=== PATIENT | female | born 1955 | race Caucasian/White ===

== ENCOUNTER 2021-10-27 16:00 | Outpatient (CLI) | payer OTHER, SELFPAY ==
--- NOTE | ~2021-10-27 | MM_ITS ---
EXAMINATION: MM screening genaro BI w semaj HISTORY: Screening mammogram TECHNIQUE: Craniocaudal and mediolateral oblique 3-D tomosynthesis images were obtained and synthetic 2-D images were generated. CAD analysis was submitted and interpreted. COMPARISON: No prior mammogram is available for comparison at this institution. BREAST PARENCHYMAL COMPOSITION: The breasts are heterogeneously dense, which may obscure small masses . FINDINGS: A suture is noted in the upper outer quadrant of the right breast. Status post right partial mastectomy and radiotherapy for history of breast cancer in 2007. This may account for architectural distortion and retraction noted on the right in the posterior inner aspect of the lower inner quadrant of the right breast. Comparison with prior mammograms is recommended. Otherwise there is no evidence of suspicious mass, calcification, or architectural distortion to sugg est malignancy in either breast. IMPRESSION: 1. Right breast architectural distortion and retraction 2. Comparison with prior mammogram examinations is recommended BI-RADS Category 0: Incomplete: Needs additional imaging evaluation (comparison with prior mammogram examinations). Reviewed, dictated and finalized at location A.
== END 2021-10-27 16:01 | disposition home or self-care (01) ==
PROVIDERS: PCP Family Medicine; Visit Provider Family Medicine
DX: Z12.31 Encounter for screening mammogram for malignant neoplasm of breast (principal)
CPT/HCPCS: 77063; 77067

== ENCOUNTER 2023-02-16 09:19 | Outpatient (CLI) | payer BC, SELFPAY ==
[2023-02-16 18:59] LABS: Free T4 Free Thyroxine 1.22 ng/mL (0.78-2.19)
[2023-02-16 19:10] LABS: Total Triiodothyronine (T3) 1.06 NG/ML (0.97-1.69)
== END 2023-02-16 09:20 | disposition home or self-care (01) ==
LOC: ANHGOSHLAB 09:21
PROVIDERS: PCP Emergency Medicine; Visit Provider Nurse Practitioner Family
DX: E03.9 Hypothyroidism, unspecified (principal)
CPT/HCPCS: 36415; 84439; 84443; 84480

== ENCOUNTER 2023-08-18 09:14 | Outpatient (CLI) | payer BC, SELFPAY ==
[2023-08-18 19:27] LABS: Alanine Aminotransferase 31 U/L (6-35); Albumin Level 4.1 g/dL (3.5-5.1); Alkaline Phosphatase 73 U/L (38-126); Anion Gap 4 mmol/L (8-16); Aspartate Amino Transferase 45 U/L (14-36); Bilirubin,Total 0.9 mg/dL (0.2-1.3); Blood Urea Nitrogen 17 mg/dL (7-17); Calcium 9.4 mg/dL (8.4-10.2); Carbon Dioxide 30 mmol/L (22-30); Chloride 105 mmol/L (98-107); Cholesterol 184 mg/dL (0-200); Estimated Glomerular Filt Rate > 60; Glucose 89 mg/dL (65-110); HDL Direct 56 mg/dL; Potassium 4.4 mmol/L (3.4-5.0); Sodium 139 mmol/L (137-145); Triglycerides 67 mg/dL (<150)
[2023-08-18 19:38] LABS: LDL Cholesterol Direct 103 mg/dL
[2023-08-18 19:47] LABS: Basophils Absolute Auto 0.1 K/mm3 (0.0-0.1); Eosinophils Absolute Auto 0.1 K/mm3 (0-0.3); Hematocrit 44.7 % (37.0-47.0); Hemoglobin 13.9 g/dL (12.0-15.0); Immature Granulocyte Absolute 0.01 K/mm3 (0.00-0.031); Immature Granulocyte Percent A 0.2 % (0-0.5); Lymphocytes Absolute Auto 1.85 K/mm3 (0.9-3.2); Lymphocytes Percent Auto 36.3 % (18.3-44.2); Mean Corpuscular HGB Conc 31.1 g/dl (32-36); Mean Corpuscular Hemoglobin 29.3 pg (26-34); Mean Corpuscular Volume 94.3 fl (80-100); Mean Platelet Volume 11.6 fl (7.4-10.4); Monocytes Absolute Auto 0.4 K/mm3 (0.1-0.6); Monocytes Percent Auto 7.8 % (2.6-8.5); Neutrophils Absolute Auto 2.7 K/mm3 (1.3-6.7); Neutrophils Percent Auto 52.7 % (45.5-73.1); Platelet Count Result 138 k/mm3 (150-375); Red Blood Count 4.74 M/mm3 (4.2-5.4); Red Cell Distribution Width 13.2 % (11.5-14.5); White Blood Count 5.1 K/mm3 (4.5-10.0)
[2023-08-18 20:05] LABS: Free T4 Free Thyroxine 1.54 ng/mL (0.78-2.19)
== END 2023-08-18 09:15 | disposition home or self-care (01) ==
LOC: ANHGOSHLAB 09:15
PROVIDERS: PCP Emergency Medicine; Visit Provider Emergency Medicine
DX: I10 Essential (primary) hypertension (principal); E03.9 Hypothyroidism, unspecified; Z79.899 Other long term (current) drug therapy
CPT/HCPCS: 36415; 80053; 80061; 84439; 84443; 85025

== ENCOUNTER → 2023-08-30 13:25 | Outpatient (CLI) | payer BC, SELFPAY ==
--- NOTE | ~2023-08-30 | XR_ITS ---
AP lateral views the left hip Clinical history: Pain Findings: No acute fracture or dislocation is seen. Osseous alignment is anatomic. There is mild left hip joint degenerative change. Soft tissues are unremarkable. Impression: Mild left hip joint degenerative change. Reviewed, dictated and finalized at location . 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
--- NOTE | ~2023-08-30 | XR_ITS ---
AP and lateral views of the right hip Clinical history: Pain Findings: No acute fracture or dislocation is seen. Osseous alignment is anatomic. There is moderate right hip joint degenerative change. Soft tissues are unremarkable. Impression: Moderate right hip joint degenerative change. Reviewed, dictated and finalized at location . 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
--- NOTE | ~2023-08-30 | XR_ITS ---
EXAMINATION: XR lumbar spine min 4V DATE: 08/30/2023 13:47 INDICATION: Dorsalgia, unspecified. TECHNIQUE: 5 views of the lumbar spine were obtained. COMPARISON: None. FINDINGS: There is 11 degrees dextroscoliosis of lumbar spine. Vertebral body heights are normal. The re is severely decreased disc height at L3-L4 and mildly decreased disc height at L5-S1. There are en dplate osteophytes at most levels. There is multilevel facet joint osteoarthritis, severe in lower [place] mbar spine. IMPRESSION: 1. Severe lumbar spondylosis. 2. Lumbar dextroscoliosis. Reviewed, dictated and finalized at location E. 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
== END ==
PROVIDERS: PCP Emergency Medicine; Visit Provider Emergency Medicine
DX: M16.0 Bilateral primary osteoarthritis of hip (principal); M43.06 Spondylolysis, lumbar region; M41.86 Other forms of scoliosis, lumbar region
CPT/HCPCS: 72110; 73502

== ENCOUNTER 2024-09-26 08:33 | Outpatient (CLI) | payer MEDICARE, SELFPAY ==
--- OUTSIDE RECORDS SUMMARY | 2024-09-26 08:59 | XMS_ITS | Encounter Summary ---
Author Organization [facility] Address [address] [place] [address] Care Team Providers Care Patient Support Tech Name Role Phone Michael Aguilar MD Primary Care Provider [phone] Encounter Details Date Type Department Care Team (Late st Contact Info) Description 10/19/2008 Outpatient Historical [facility] Radiation Oncology [place] [address] [place] [address] Marylin Pearl MD NO ADDRESS ON FILE Deshaun Hickman MD [address] [id number] Malignant Neoplasm of Central Portion of Female Breast (CMS/HCC) Social History Tobacco Use Types Packs/Day Years Used Date Smoking Tobacco: Never Assessed Comments Unknown Sex and Gender Information Value Date Recorded Sex Assigned at Not on file Legal Sex Female 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 [place] [id number] PCP - General Family Practice 08/31/23 documented as of this encounter
--- OUTSIDE RECORDS SUMMARY | 2024-09-26 08:59 | XMS_ITS | Clinical Summary ---
Author Organization [facility] Address [address] [place] [address] Care Team Providers Care Radioactivity Technician Name Role Phone Michael Aguilar MD Primary Care Provider [phone] Allergies Active Allergy Reactions Criticality Noted Date Comments Docetaxel Rash Medium 06/21/2013 Nitrofurantoin Palpitations,Cough Medium 06/21/2013 Medications CALCIUM CARBONATE/VITAM IN D3 (CALCIUM 600 + D PO) Take by mouth daily. Active ASCORBIC ACID (VITAMIN C ORAL)Indication s:Breast cancer (CMS/HCC),Throm bocytopenia, unspecified,Vag inal atrophy Take by mouth. Ac tive magnesium oxide 250 mg Tablet Take by mouth. A ctive levothyroxine 50 mcg tablet TAKE 1 TABLET EVERY DAY 3 6 Active estradioL (ESTRACE) 0.01% (0.1 mg/g) vaginal creamIndication s:Vaginal dryness INSERT VAGINALLY DAILY. 126 Gram 3 1 Active Active Problems Patient Care Coordination No te Formatting of this note migh t be different from the original. 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 282 after treatmetn for BOOP 87 in January Flow of peripheral blood was normal. Bone marrow bx Breast cancer 01/13/2009 Overview (05/08/2013): 04/22/08 Stage I ([id number]) IDC RIGHT breast ER50% PR70% HER2 - Ki67 35% S/p lumpectomy and SLNB S/p TC x 1 then AC x 3 (BOOP, pneumonitis); long prednisone taper S/p radiatoin 10/30/08 THrombocytopenia 01/08/09 TMX--01/13/10 ARIMIDEX -- FEMARA x 5 years Assessment & Plan (05/08/2013 3:32 PM CDT): ITP 4 years brca 5 years Off AI next January Plts 107 Crp up a bit - 1.9 Assessment & Plan (05/02/2012 3:13 PM CDT): ITP 3 years Breast cancer 4 years AI until January 2014 Plts ROV 1 year colonoscopy at 51y BMD uTD Assessment & Plan (11/01/2011 4:03 PM CDT): ITP 2 1/2 years Brast cancer 3 1/2 years Mammo Nov Plts 97 LFTs increased - on 1000IU vitamin E - told her to stop adn recheck in 4 weeks FEMARA ROV 1 yeaar Assessment & Plan (10/20/2010 4:36 PM CDT): ITP 1 1/2 yrs and breast cancer 2 1/2 yrs Bleeding early Aug - had endo bx which was negative; off AI until labs drawn Aug 27 , post andrea (barely) - still has d/c; atrophy Hot flashes - suggested MgO TSH was elevated in past; she's tired, cold Mammogram in Oct Plts 90 Check TSH today with labs FEMARA ROV 6 months Assessment & Plan (07/16/2010 3:01 PM ASSISTANT CONSTRUCTION SUPERINTENDENT): ITP and breast cancer Mammogram in Apr FEMARA Plts today 83 ROV 3 months Assessment & Plan (04/15/2010 3:46 PM CDT): ITP and breast cancer Mammogram today Arimidex for 3 months - a little sad plts 56 Spet 11th \still has intermittent LUIQ pain/pulling - Jaz Ducar referral UTI - picking up script today ROV 3 months Assessment & Plan (01/13/2010 3:07 PM CDT): ITP and breast cancer Mammogram Apr Plt 53 at last visit TMX causing leg cramps Discussed AIs Script for Arimidex Still having gastritis pains - on PPI ROV 3 months Monthly platelets Assessment & Plan (10/06/2009 2:20 PM CDT): Mammogram Oct 1 1/2 yrs out Still has LUQ pain in late afternoon when she's hungry - sounds like gastritis/ulcer. She is seeign her PCP for this soon Check labs, vit D, plt count ROV 6 months Assessment & Plan (06/27/2009 11:13 AM ASSISTANT CONSTRUCTION SUPERINTENDENT): Mammogram 05/05/09 negative 1 yr out from diagnosis Has pain LUQ; intermittent and usually when she's hungry. No bleeding or bruises out of range of normal Tired Check labs Check scans from [facility] to document normal spleen size Check U/S spleen ROV 3 months with labs Assessment & Plan (03/28/2009 3:50 PM CDT): 1 yr out next month On TMX 2 months doing well Low plts - reviewed BM biopsy in office -- worst case she has early myelodysplasia with hypolobulated plts PLAN: cont tmx Check CBC Discussed platelet issue in detail Mammogram in April ROV 3-6 months Encounters Date Type Department Care Team Description 09/11/2024 External Device Data [facility] ABSTRACTION Provider, Abstract 08/29/2024 External Device Data [facility] ABSTRACTION Provider, Abstract 08/28/2024 External Device Data [facility] ABSTRACTION Provider, Abstract 08/02/2024 External Device Data [facility] ABSTRACTION Provider, Abstract 07/31/2024 External Device Data [facility] ABSTRACTION Provider, Abstract 07/24/2024 External Device Data [facility] ABSTRACTION Provider, Abstract 07/17/2024 External Device Data [facility] ABSTRACTION Provider, Abstract from Last 3 Months Immunizations Immunization Administration Dates Next Due Influenza Seasonal Unspecified Formulation IM Family History Medical History Relation Name Comments Healthy Daughter 1 Healthy Daughter 2 Healthy Daughter 3 Heart Disease Father Stroke Father Breast Cancer Maternal Aunt age 50's Heart Disease Mother Stroke Mother Breast Cancer Paternal Aunt age 50's Cancer Paternal Uncle various Ovarian Cancer Neg Hx Uterine Cancer Neg Hx Relation Name Status Comments Daughter 1 Alive Daughter 2 Alive Daughter 3 Alive Father Maternal Aunt Mother Paternal Aunt Paternal Uncle Social History Tobacco Use Types Packs/Day Years Used Date Smoking Tobacco: Former Smokeless Tobacco: Never Tobacco Cessation:Counseling Given: No Alcohol Use Standard Drinks/Week Comments Yes 0 (1 standard drink = 0.6 oz pur e alcohol) rarely Comments No Sex and Gender Information Value Date Recorded Sex Assigned at Not on file Legal Sex Female 5:39 AM ASSISTANT CONSTRUCTION SUPERINTENDENT Gender Identity Not on file Sexual Orientation Not on file Occupation Industry Job Start Date Job End Date Not on file Not on file Not on file Not on file Last Filed Vital Signs Vital Sign Reading Time Taken Comments Blood Pressure 130/70 06/03/2020 12:21 PM ASSISTANT CONSTRUCTION SUPERINTENDENT Pulse 65 06/03/2020 12:21 PM ASSISTANT CONSTRUCTION SUPERINTENDENT Temperature 36.7 C (98.1 F) 06/03/2020 12:21 PM ASSISTANT CONSTRUCTION SUPERINTENDENT Respiratory Rate 18 06/03/2020 12:21 PM ASSISTANT CONSTRUCTION SUPERINTENDENT Oxygen Saturation 99% 06/03/2020 12:21 PM ASSISTANT CONSTRUCTION SUPERINTENDENT Inhaled Oxygen Concentration - - Weight 62.1 kg (137 lb) 06/03/2020 12:21 PM ASSISTANT CONSTRUCTION SUPERINTENDENT Height 168.9 cm (5' 6.5 ) 06/03/2020 12:21 PM CS T Body Mass Index 21.78 06/03/2020 12:21 PM ASSISTANT CONSTRUCTION SUPERINTENDENT Plan of Treatment Health Maintenance Due Date Last Done Comments DTAP/TDAP/TD VACCINES (1 - Tdap) 1975 FIT-DNA Q 3 years 2001 FIT/FOBT Q 1 year 2001 Flex Sig/CT Colonography Q 5 years 2001 PNEUMOCOCCAL VACCINE 50+ YEA RS (1 of 1 - PCV) 2006 ZOSTER VACCINE (1 of 2) 2006 COLORECTAL SCREENING 02/09/2020 02/08/2010 (Previously completed) Colorectal Cancer Screening 02/09/2020 INFLUENZA VACCINE (#1) 2024 03/27/2011 BREAST CANCER SCREENING 12/01/2024 12/02/19 24, 05/20/2023, 11/15/2022, Additional history exists OSTEOPOROSIS SCREENING 10/11/2025 , 06/14/2019, 07/10/2014, Additional history exists RSV VACCINE (60+ or ) (1 - 1-dose 75+ series) 2031 Procedures Procedure Name Priority Date/Time Associated Diagnosis Comments MAMMO 3D HANH DIAGNOSTIC BILAT W OR WO CAD Routine 12/02/2023 11:39 AM CDT Breast asymmetry Breast cancer screening by mammogram XR DEXA BONE DENSITY AXIAL 1 OR MORE SITES Routine 10/12/2023 10:38 AM CDT Other specified disorders of bone density and structure, unspecified site from Last 3 Months or Most Recently Relevant to Health Maintenance Results * MAMMO 3D HANH DIAGNOSTIC BILAT W OR WO CAD (12/02/2023 11:39 AM CDT) Anatomical Region Laterality Modality Breast Bilateral Mammography 12/02/2023 11:3 9 AM CDT Impressions 12/02/2023 11:59 AM CDT IMPRESSION: 1. No evidence of malignancy in either breast. 2. Focal asymmetry in the upper-inner left breast is stable since 2011 consistent with benign finding. OVERALL FINAL ASSESSMENT: BI-RADS Category 2: Benign finding(s). RECOMMENDATION: Bilateral screening mammogram in one year. Findings discussed with the patient. DICTATION LOCATION: [facility] 12/02/2023 11:59 AM CDT BILATERAL DIGITAL DIAGNOSTIC MAMMOGRAM WITH TOMOSYNTHESIS AND CAD TECHNIQUE: Images were performed using 2D full field digital mammography with 3D tomosynthesis images. CAD analysis was performed. DATE: 12/02/2023 11:39 AM HISTORY: Right breast cancer status post breast conservation therapy in 2011. History of benign right breast biopsy. Probably benign asymmetry in the upper-inner left breast. COMPARISON: Prior mammograms, dating back to 05/07/2009 and most recently 05/20/2023. BREAST COMPOSITION: The breasts are heterogeneously dense, which may obscure small masses. FINDINGS: Additional spot compression tomosynthesis images of the left breast were obtained. A focal asymmetry in the upper-inner left breast posterior depth is stable since 2011 consistent with benign finding. Posttreatment changes are seen in the right breast. Marker from prior benign biopsy is seen in the right breast. There is no suspicious mass, clustered microcalcification, or architectural distortion in either breast on 2D or tomosynthesis images. There has been no change in the mammographic appearance compared with the prior study. Procedure Note Omar Jang MD - 12/02/2023 BILATERAL DIGITAL DIAGNOSTIC MAMMOGRAM WITH TOMOSYNTHESIS AND CAD TECHNIQUE: Images were performed using 2D full field digital mammography with 3D tomosynthesis images. CAD analysis was performed. DATE: 12/02/2023 11:39 AM HISTORY: Right breast cancer status post breast conservation therapy in 2012. History of benign right breast biopsy. Probably benign asymmetry in the upper-inner left breast. COMPARISON: Prior mammograms, dating back to 05/07/2009 and most recently 05/20/2023. BREAST COMPOSITION: The breasts are heterogeneously dense, which may obscure small masses. FINDINGS: Additional spot compression tomosynthesis images of the left breast were obtained. A focal asymmetry in the upper-inner left breast posterior depth is stable since 2011 consistent with benign finding. Posttreatment changes are seen in the right breast. Marker from prior benign biopsy is seen in the right breast. There is no suspicious mass, clustered microcalcification, or architectural distortion in either breast on 2D or tomosynthesis images. There has been no change in the mammographic appearance compared with the prior study. IMPRESSION: 1. No evidence of malignancy in either breast. 2. Focal asymmetry in the upper-inner left breast is stable since 2011 consistent with benign finding. OVERALL FINAL ASSESSMENT: BI-RADS Category 2: Benign finding(s). RECOMMENDATION: Bilateral screening mammogram in one year. Findings discussed with the patient. DICTATION LOCATION: [facility] Ila Schwab MD MAMMO ORDERABLES Final Result * XR DEXA BONE DENSITY AXIAL 1 OR MORE SITES (10/12/2023 10:38 AM CDT) Anatomical Region Laterality Modality Computed Radiogr aphy 10/12/2023 10:3 8 AM CDT Impressions 10/12/2023 4:24 PM CDT IMPRESSION: This is a summary page. Please refer to the complete detailed report found in the Imaging Section of the [facility] EMR, including absolute bone mineral density values. Decreased (osteopenic) BMD. Comments: Bone mineral density measured in the spine may be unreliable due to the impact of sclerotic degenerative changes. Statistical change: There is a statistically significant decrease in bone mineral density at the L1-L2 measurement site(s), 2.6% lower than in 2019. A statistically significant change is defined as a change of greater than 2.5 standard deviations in the least significant difference (LSD) from the prior study. Least significant differences and statistically significant changes are defined as follows: Lumbar spine: +/- 0.010 g/cm2 LSD (+/- 0.025 g/cm2 statistically significant change) Femoral neck: +/- 0.014 g/cm2 (+/- 0.035 g/cm2) Forearm radius 33%: +/- 0.020 g/cm2 (+/- 0.050 g/cm2) FRAX FRACTURE RISK ASSESSMENT: Risk factors: Secondary osteoporosis. 10 Year Probability Of Fracture Major Osteoporotic: 8.4 % Hip: 1.0 % Comparison population: [place], Race: A major osteoporotic fracture is defined as a fracture of the spine, forearm, hip or shoulder. Definitions: Normal: T-score >= -1.0 Osteopenia T-score less than -1.0 and above -2.5 Osteoporosis: T-score <= -2.5 Follow-up Recommendations: Patients without high risk factors for osteoporosis T-score -1.0 to -1.5 - Consider repeat BMD in 5-10 years T-score -1.5 to - 2.0 - Consider repeat BMD in 3-5 years T-score -2.0 to - 2.5 - Consider repeat BMD every 2 years Patients on treatment for osteoporosis 1-2 years after initiation of treatment and every 2 years thereafter DICTATION LOCATION: Location 1 - [facility] Narrative 10/12/2023 4:24 PM CDT EXAMINATION: BONE DENSITY STUDY (DXA) DATE: 10/12/2023 10:38 AM HISTORY: See Diagnosis Other specified disorders of bone density and structure, unspecified site PROCEDURE: Planar images of the lumbar spine and/or hip(s) using a LUNAR DEXA scanner for bone mineral density determination (BMD). Prior bone density: 06/14/2019 FINDINGS: Lumbar Spine (L1-L2): T-Score: -1.3 Left Femoral Neck: T-Score: -1.1 Right Femoral Neck: T-Score: -1.6 Procedure Note Petros Arguelles MD - 10/12/2023 EXAMINATION: BONE DENSITY STUDY (DXA) DATE: 10/12/2023 10:38 AM HISTORY: See Diagnosis Other specified disorders of bone density and structure, unspecified site PROCEDURE: Planar images of the lumbar spine and/or hip(s) using a LUNAR DEXA scanner for bone mineral density determination (BMD). Prior bone density: 06/14/2019 FINDINGS: Lumbar Spine (L1-L2): T-Score: -1.3 Left Femoral Neck: T-Score: -1.1 Right Femoral Neck: T-Score: -1.6 IMPRESSION: This is a summary page. Please refer to the complete detailed report found in the Imaging Section of the [facility] EMR, including absolute bone mineral density values. Decreased (osteopenic) BMD. Comments: Bone mineral density measured in the spine may be unreliable due to the impact of sclerotic degenerative changes. Statistical change: There is a statistically significant decrease in bone mineral density at the L1-L2 measurement site(s), 2.6% lower than in 2019. A statistically significant change is defined as a change of greater than 2.5 standard deviations in the least significant difference (LSD) from the prior study. Least significant differences and statistically significant changes are defined as follows: Lumbar spine: +/- 0.010 g/cm2 LSD (+/- 0.025 g/cm2 statistically significant change) Femoral neck: +/- 0.014 g/cm2 (+/- 0.035 g/cm2) Forearm radius 33%: +/- 0.020 g/cm2 (+/- 0.050 g/cm2) FRAX FRACTURE RISK ASSESSMENT: Risk factors: Secondary osteoporosis. 10 Year Probability Of Fracture Major Osteoporotic: 8.4 % Hip: 1.0 % Comparison population: [place], Race: A major osteoporotic fracture is defined as a fracture of the spine, forearm, hip or shoulder. Definitions: Normal: T-score >= -1.0 Osteopenia T-score less than -1.0 and above -2.5 Osteoporosis: T-score <= -2.5 Follow-up Recommendations: Patients without high risk factors for osteoporosis T-score -1.0 to -1.5 - Consider repeat BMD in 5-10 years T-score -1.5 to - 2.0 - Consider repeat BMD in 3-5 years T-score -2.0 to - 2.5 - Consider repeat BMD every 2 years Patients on treatment for osteoporosis 1-2 years after initiation of treatment and every 2 years thereafter DICTATION LOCATION: Location 1 - [facility] Michael Aguilar MD DIAGNOSTIC IMAGING ORDERABLES Fi nal Result from Last 3 Months or Most Recently Relevant to Health Maintenance Insurance RX [facility] [employer] [facility] BLUE ACCESS/TRUE BLUE PPO Care Teams Radioactivity Technician Relationship Specialty Start Date End Date Michael Aguilar MD [address] [place] [address] PCP - General Family Practice 08/31/23
--- OUTSIDE RECORDS SUMMARY | 2024-09-26 08:59 | XMS_ITS | Encounter Summary ---
Author Organization [facility] Address [address] [place] [address] Care Team Providers Care Lining Sewer Name Role Phone Michael Aguilar MD Primary Care Provider [phone] Encounter Details Date Type Department Care Team (Late st Contact Info) Description 05/30/2008 Outpatient [facility] Radiation Oncology [place] [address] [place] [id number] Marylin Pearl MD NO ADDRESS ON FILE Deshaun Hickman MD [address] [place] [id number] Malignant Neoplasm of Central Portion of Female Breast (CMS/HCC) Social History Tobacco Use Types Packs/Day Years Used Date Smoking Tobacco: Never Assessed Comments Unknown Sex and Gender Information Value Date Recorded Sex Assigned at Not on file Legal Sex Female 5:39 AM 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
--- OUTSIDE RECORDS SUMMARY | 2024-09-26 08:59 | XMS_ITS | Continuity of Care Document ---
Author Organization [facility] Address [address] [place] [address] Phone Care Team Providers Care Glass Mechanic Name Role Phone Ozzie Hernandez MD Unavailable Unavailable Allergies, Adverse Reactions, Alerts Substance Reaction Status Criticality docetaxel Rash Active No Information Sulfa (Sulfonamide Antibiotics) Active No Information nitrofurantoin PalpitationsDyspnea Active Unable to Assess erythromycin base Active No Informa tion Medications Medication Instructions Dosage Effective Dates (start - stop) Status Comments lorazepam 0.5 mg tablet - Ac tive levothyroxine 75 mcg capsule take 1 capsule by oral route every day 75 MCG - Active Procedures Procedure Date New (Level 4) OFFICE/OUTPATIENT VISIT Fl DIRECTOR OF EDUCATION Registration Fee Advance Directives Directive Yes / [...] [facility], [address], [place], [place], [id number], tel:[phone] [facility] reaction, food (chief complaint) Other adverse food reaction, initial encounterAbnorm al results of function studies of other systemsLactose intolerance, unspecified [address]. [address], [place], [address], [place]. tel:[phone] Referring Provider: Micheal Leon, [address] [place] [address] [address], [place], [address]. tel:[phone] [facility], [address] [place] [address], [id number], [place] tel:[phone] [facility] No Information 4 [facility] Prov. . Referring Provider: Ozzie Hernandez, [address], [place], [address]. tel:[phone] Family History Family Member Type Diagnosis Age At Onset Mother Problem Rhinitis Problem No family history of Asthma Father Problem Rhinitis Problem Family history of Rhinitis Payers Payer name Insurance type Covered democrat ID Matilde peña(s) [facility] [id number] Social History Type Description Quantity Date Captured [...] was treatedFHAsthma - noneRhinitis - mom, dad, childrenLankenau Medical Centero: Former smoker (2 ppd x 5 years; [...] Prese nt Illness reaction, food Adverse Food Hansa ctionMilk - She reports diarrhea with milk [...]
--- OUTSIDE RECORDS SUMMARY | 2024-09-26 08:59 | XMS_ITS | Encounter Summary ---
Author Organization [facility] Address [address] [place] [address] Care Team Providers Care Rn Med Surg Name Role Phone Michael Aguilar MD Primary Care Provider [phone] Encounter Details Date Type Department Care Team (Late st Contact Info) Description 09/17/[address] [facility] Radiation Oncology [place] [address] [place] [address] Marylin Pearl MD NO ADDRESS ON FILE Deshaun Hickman MD [address] [place] [id number] Malignant Neoplasm of Central Portion of Female Breast (CMS/HCC) Social History Tobacco Use Types Packs/Day Years Used Date Smoking Tobacco: Never Assessed Comments Unknown Sex and Gender Information Value Date Recorded Sex Assigned at Not on file Legal Sex Female 5:39 AM COMMERCIAL LOAN COORDINATOR Gender Identity Not on file Sexual Orientation Not on file documented as of this encounter Plan of Treatment Not on file documented as of this encounter Visit Diagnoses Diagnosis Malignant neoplasm of central portion of female breast (CMS/HCC) Malignant neoplasm of central portion of female breast documented in this encounter Care Teams Rn Med Surg Relationship Specialty Start Date End Date Michael Aguilar MD [facility] [facility] [address] [address] [facility] [place] [phone] PCP - General Family Practice 08/31/23 documented as of this encounter
--- OUTSIDE RECORDS SUMMARY | 2024-09-26 08:59 | XMS_ITS | Encounter Summary ---
Author Organization [facility] Address [address] [place] [address] Care Team Providers Care Town Manager Name Role Phone Michael Aguilar MD Primary Care Provider [phone] Encounter Details Date Type Department Care Team (Late st Contact Info) Description 11/20/2008 Outpatient Historical [facility] Radiation Oncology [place] [address] [place] [address] Marylin Pearl MD NO ADDRESS ON FILE Deshaun Hickman MD [address] [place] [phone] Malignant Neoplasm of Central Portion of Female Breast (CMS/HCC) Social History Tobacco Use Types Packs/Day Years Used Date Smoking Tobacco: Never Assessed Comments Unknown Sex and Gender Information Value Date Recorded Sex Assigned at Not on file Legal Sex Female 5:39 AM 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
--- OUTSIDE RECORDS SUMMARY | 2024-09-26 08:59 | XMS_ITS | Encounter Summary ---
Author Organization [facility] Address [address] [place] [address] Care Team Providers Care Rural Mail Carrier Name Role Phone Michael Aguilar MD Primary Care Provider [phone] Encounter Details Date Type Department Care Team (Late st Contact Info) Description 08/09/2008 Outpatient Historical [facility] Radiation Oncology [place] [address] [place] [address] Marylin Pearl MD NO ADDRESS ON FILE Deshaun Hickman MD [address] [place] [id number] Malignant Neoplasm of Central Portion of Female Breast (CMS/HCC) Social History Tobacco Use Types Packs/Day Years Used Date Smoking Tobacco: Never Assessed Comments Unknown Sex and Gender Information Value Date Recorded Sex Assigned at Not on file Legal Sex Female 5:39 AM PRICER BAGGER Gender Identity Not on file Sexual Orientation Not on file documented as of this encounter Plan of Treatment Not on file documented as of this encounter Visit Diagnoses Diagnosis Malignant neoplasm of central portion of female breast (CMS/HCC) Malignant neoplasm of central portion of female breast documented in this encounter Care Teams Rural Mail Carrier Relationship Specialty Start Date End Date Michael Aguilar MD [facility] [facility] [place] [address] PCP - General Family Practice 08/31/23 documented as of this encounter
--- OUTSIDE RECORDS SUMMARY | 2024-09-26 08:59 | XMS_ITS | Encounter Summary ---
Author Organization [employer] Address [address] [place] [address] Care Team Providers Care Sheet Metal Production Worker Name Role Phone Michael Aguilar MD Primary Care Provider [phone] Encounter Details Date Type Department Care Team (Latest Contact Info) Description 01/08/2009 Outpatient Historical [facility] Dflt Department Joy Olmedo MD [address] [place] [address] [place] [address] Encounter for Antineoplastic Chemotherapy Social History Tobacco Use Types Packs/Day Years Used Date Smoking Tobacco: Never Assessed Comments Unknown Sex and Gender Information Value Date Recorded Sex Assigned at Not on file 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
--- OUTSIDE RECORDS SUMMARY | 2024-09-26 08:59 | XMS_ITS | Encounter Summary ---
Author Organization [facility] Address [address] [place] [address] Care Team Providers Care Protection Manager Name Role Phone Michael Aguilar MD Primary Care Provider [phone] Encounter Details Date Type Department Care Team (Latest Contact Info) Description 06/12/2008 Outpatient Historical [facility] Radiation Oncology [place] [address] [place] [address] [place] [address] Marylin Pearl MD NO ADDRESS ON FILE Malignant Neoplasm of Central Portion of Female Breast (CMS/HCC) Social History Tobacco Use Types Packs/Day Years Used Date Smoking Tobacco: Never Assessed Comments Unknown Sex and Gender Information Value Date Recorded Sex Assigned at Not on file 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 [place] [address] PCP - General Family Practice 08/31/23 documented as of this encounter
[2024-09-26 13:20] LABS: Hematocrit 41.1 % (37.0-47.0); Hemoglobin 13.3 g/dL (12.0-15.0); Mean Corpuscular HGB Conc 32.4 g/dl (32-36); Mean Corpuscular Hemoglobin 30.3 pg (26-34); Mean Corpuscular Volume 93.6 fl (80-100); Mean Platelet Volume 10.2 fl (7.4-10.4); Platelet Count Result 126 k/mm3 (150-375); Red Blood Count 4.39 M/mm3 (4.2-5.4); Red Cell Distribution Width 13.2 % (11.5-14.5); White Blood Count 4.5 K/mm3 (4.5-10.0)
[2024-09-26 13:41] LABS: Alanine Aminotransferase 42 U/L (6-35); Albumin Level 4.5 g/dL (3.5-5.1); Alkaline Phosphatase 66 U/L (38-126); Anion Gap 10 mmol/L (4-12); Aspartate Amino Transferase 47 U/L (14-36); Bilirubin,Total 0.7 mg/dL (0.2-1.3); Blood Urea Nitrogen 18 mg/dL (7-17); Calcium 9.4 mg/dL (8.4-10.2); Carbon Dioxide 28 mmol/L (22-30); Chloride 103 mmol/L (98-107); Cholesterol 203 mg/dL (0-200); Estimated Glomerular Filt Rate > 60; Glucose 81 mg/dL (65-110); HDL Direct 62 mg/dL; Potassium 3.8 mmol/L (3.4-5.0); Sodium 141 mmol/L (137-145); Triglycerides 75 mg/dL (<150)
[2024-09-26 13:52] LABS: LDL Cholesterol Direct 98 mg/dL
[2024-09-26 14:36] LABS: Free T4 Free Thyroxine 1.18 ng/dL (0.78-2.19)
== END 2024-09-26 08:34 | disposition home or self-care (01) ==
LOC: ANHGOSHLAB 08:34
PROVIDERS: PCP Family Medicine; Visit Provider Family Medicine
DX: E03.9 Hypothyroidism, unspecified (principal); I10 Essential (primary) hypertension; R74.8 Abnormal levels of other serum enzymes; Z79.899 Other long term (current) drug therapy
CPT/HCPCS: 36415; 80053; 80061; 84439; 84443; 85027

== ENCOUNTER 2024-11-20 09:21 | Outpatient (CLI) | payer MEDICARE, SELFPAY ==
--- NOTE | ~2024-11-20 | XR_ITS ---
Right Knee Technique: AP, lateral, and oblique views were obtained. Clinical History: Pain Findings: No fracture or dislocation is seen. Osseous alignment is anatomic. Joint spaces are preserv ed without degenerative or erosive change. Soft tissues are unremarkable. No joint effusion is seen. Impression: Unremarkable right knee radiographs. Reviewed, dictated and finalized at location . Impression: Unremarkable right knee radiographs.
--- NOTE | ~2024-11-20 | XR_ITS ---
Lumbosacral Spine: AP, oblique, and lateral views Clinical History: Pain Findings: There is mild dextroscoliosis. Extensive facet arthropathy is present throughout the lumbar spine. There moderate degenerative changes at L3-L4, mild degenerative disc change at the remainder of the lumbar spine. Sacroiliac joints are normally outlined. Impression: Degenerative spondylosis, as above, with extensive facet arthropathy. Reviewed, dictated and finalized at location M. Impression: Degenerative spondylosis, as above, with extensive facet arthropathy.
--- NOTE | ~2024-11-20 | XR_ITS ---
AP and lateral views of the right hip Clinical history: Pain Findings: No acute fracture or dislocation is seen. There is severe right hip joint degenerative patel ge. There is joint space narrowing and osteophyte formation. There is a chondral cystic change in the superior right acetabulum.. Soft tissues are unremarkable. Impression: Severe right hip joint osteoarthritis. Reviewed, dictated and finalized at location . Impression: Severe right hip joint osteoarthritis.
== END 2024-11-20 09:22 | disposition home or self-care (01) ==
PROVIDERS: Visit Provider Family Medicine
DX: M47.896 Other spondylosis, lumbar region (principal); M16.11 Unilateral primary osteoarthritis, right hip; M25.561 Pain in right knee
CPT/HCPCS: 72110; 73502; 73564

== ENCOUNTER 2024-12-21 11:52 | Outpatient (CLI) | payer MEDICARE, SELFPAY ==
--- OUTSIDE RECORDS SUMMARY | 2024-12-21 11:55 | XMS_ITS | Clinical Summary ---
Author Organization [facility] Address [address] [place] [address] Care Team Providers Care Qlikview Developer Name Role Phone Michael Aguilar MD Primary Care Provider [phone] Allergies Active Allergy Reactions Criticality Noted Date [...] Hickman MD [address] [place] [address] Other: Dr Anneliese Phillips Problem Noted Date Diagnosed Date Asymptomatic postmenopausal status 07/01/2014 Thrombocytopenia - ITP 01/15/2009 Overview (01/15/2009): 153 prior to chemo. 282 after treatmetn for BOOP 87 in January Flow of peripheral blood was normal. Bone marrow bx Breast cancer 01/13/2009 Overview (05/08/2013): 04/22/08 Stage I ([id number]) IDC RIGHT breast ER50% PR70% HER2 - [...] months Assessment & Plan (07/16/2010 3:01 PM ENERGY CONSULTANT): ITP and breast cancer Mammogram in Apr [...] months Assessment & Plan (06/27/2009 11:13 AM ENERGY CONSULTANT): Mammogram 05/05/09 negative 1 yr out from [...] Encounters Date Type Department Care Team Description 12/04/2024 11:03 AM CDT - 12/04/2024 11:59 PM CDT Hospital Encounter [facility] [address] [place] [address] Bella Nolasco, Discharge Disposition: Home or Self Care 11/27/2024 External Device Data STL ABSTRACTION Provider, Abstract 10/23/2024 External Device Data STL ABSTRACTION Provider, Abstract 10/03/2024 Transcribe Orders Central Test Scheduling [address] [place] [address] Bella Nolasco DO Visit for screening mammogram (Primary Dx) from Last 3 Months Immunizations Immunization Administration [...] on file Legal Sex Female 5:39 AM ENERGY CONSULTANT Gender Identity Not on file Sexual Orientation Not on file Occupation Industry Job Start Date Job End Date Not on file Not on file Not on file Not on file Last Filed Vital Signs Vital Sign Reading Time Taken Comments Blood Pressure 130/70 06/03/2020 12:21 PM ENERGY CONSULTANT Pulse 65 06/03/2020 12:21 PM ENERGY CONSULTANT Temperature 36.7 C (98.1 F) 06/03/2020 12:21 PM ENERGY CONSULTANT Respiratory Rate 18 06/03/2020 12:21 PM ENERGY CONSULTANT Oxygen Saturation 99% 06/03/2020 12:21 PM ENERGY CONSULTANT Inhaled Oxygen Concentration - - Weight 62.1 kg (137 lb) 06/03/2020 12:21 PM ENERGY CONSULTANT Height 168.9 cm (5' 6.5) 06/03/2020 12:21 PM CS T Body Mass Index 21.78 06/03/2020 12:21 PM ENERGY CONSULTANT Plan of Treatment Health Maintenance Due Date [...] Screening 02/09/2020 INFLUENZA VACCINE (#1) 2024 03/27/2011 OSTEOPOROSIS SCREENING 10/11/2025 4, 06/14/2019, 07/10/2014, Additional history exists BREAST CANCER SCREENING 12/04/2025 12/05/19 25, 12/02/2023, 05/20/2023, Additional history exists RSV VACCINE (60+ or ) (1 - 1-dose 75+ series) 2031 Procedures Procedure Name Priority Date/Time Associated Diagnosis Comments MAMMO 3D HANH SCREEN BILAT W OR WO CAD Routine 12/04/2024 11:19 AM CDT Visit for screening mammogram XR DEXA BONE DENSITY AXIAL 1 OR MORE SITES Routine 10/12/2023 10:38 AM CDT Other specified disorders of bone density and structure, unspecified site from Last 3 Months or Most Recently Relevant to Health Maintenance Results * MAMMO 3D HANH SCREEN BILAT W OR WO CAD (12/04/2024 11:19 AM CDT) Anatomical Region Laterality Modality Breast Bilateral Mammography 12/04/2024 11:1 9 AM CDT Impressions 12/04/2024 11:41 AM CDT IMPRESSION: Negative. RECOMMENDATIONS: Bilateral annual screening mammogram RIGHT BREAST FINAL ASSESSMENT: BI-RADS CATEGORY 1 - Negative LEFT BREAST FINAL ASSESSMENT: BI-RADS CATEGORY 1 - Negative DICTATION LOCATION: [facility] 12/04/2024 11:41 AM CDT BILATERAL SCREENING DIGITAL MAMMOGRAMS WITH COMPUTER ASSISTED DIAGNOSIS WITH TOMOGRAPHY DATE: 12/04/2024 11:19 AM HISTORY: Routine screening mammogram. . COMPARISON: 12/02/2023, 05/20/2023 and 10/28/2022. TECHNIQUE: A bilateral screening mammogram was performed. Low-dose full-field digital breast tomosynthesis examination was performed with 2D and 3D acquisitions. Examination is read in conjunction with computer aided detection. BREAST COMPOSITION: Heterogeneously dense, which limits the sensitivity of mammography. FINDINGS: No new masses, suspicious calcifications or areas of asymmetry or distortion are identified. The images were reviewed using the CAD system. us Bella Northchrissydalton DO MAMMO ORDERABLES Final Res ult * XR DEXA BONE DENSITY AXIAL 1 OR MORE SITES (10/12/2023 10:38 AM CDT) Anatomical Region Laterality Modality Computed Radiogr aphy 10/12/2023 10:3 8 AM CDT Impressions 10/12/2023 4:24 PM CDT IMPRESSION: This is a summary page. Please refer to the complete detailed report found in the Imaging Section of the [facility] [employer] EMR, including absolute bone mineral density values. [...] years thereafter [facility] 10/12/2023 4:24 PM CDT EXAMINATION: BONE DENSITY [...] found in the Imaging Section of the [facility] EMR, including absolute bone mineral density [...] and every 2 years thereafter DICTATION LOCATION: [address] Michael Aguilar MD DIAGNOSTIC IMAGING ORDERABLES Fi nal Result from Last 3 Months or Most Recently Relevant to Health Maintenance Insurance RX [facility] Care Teams Qlikview Developer Relationship Specialty Start Date End Date Michael Aguilar MD [address] [facility] [place] [address] PCP - General Family Practice 08/31/23
--- OUTSIDE RECORDS SUMMARY | 2024-12-21 11:55 | XMS_ITS | Encounter Summary ---
Author Organization [facility] Address 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 Breast (CMS/HCC) Social History Tobacco Use Types Packs/Day Years Used Date Smoking Tobacco: Never Assessed Comments Unknown Sex and Gender Information Value Date Recorded Sex Assigned at Not on file 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
--- OUTSIDE RECORDS SUMMARY | 2024-12-21 11:55 | XMS_ITS | Encounter Summary ---
Author Organization [facility] Address [address] [place] [address] Care Team Providers Care Architectural Model Maker Name Role Phone Michael Aguilar MD Primary Care Provider [phone] Encounter Details Date Type Department Care Team (Late st Contact Info) Description 09/17/2008 Outpatient Historical [facility] Radiation Oncology [place] [address] [place] [address] Marylin Pearl MD NO ADDRESS ON FILE Deshaun Hickman MD [address] [place] [phone] Malignant Neoplasm of Central Portion of Female Breast (CMS/HCC) Social History Tobacco Use Types Packs/Day Years Used Date Smoking Tobacco: Never Assessed Comments Unknown Sex and Gender Information Value Date Recorded Sex Assigned at Not on file 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 Gender Identity Not on file Sexual Orientation Not on file documented as of this encounter Plan of Treatment Not on file documented as of this encounter Visit Diagnoses Diagnosis Malignant neoplasm of central portion of female breast (CMS/HCC) Malignant neoplasm of central portion of female breast documented in this encounter Care Teams Architectural Model Maker Relationship Specialty Start Date End Date Michael Aguilar MD [facility] [facility] [place] [address] PCP - General Family Practice 08/31/23 documented as of this encounter
--- OUTSIDE RECORDS SUMMARY | 2024-12-21 11:55 | XMS_ITS | Encounter Summary ---
Author Organization [employer] Address [address] [place] [address] Care Team Providers Care Web Analytics Developer Name Role Phone Michael Aguilar MD Primary Care Provider Encounter Details Date Type Department Care Team (Latest Contact Info) Description 01/08/2009 Outpatient Historical [facility] Dflt Department Joy Olmedo MD [address] [place] [address] [place] [address] Encounter for Antineoplastic Chemotherapy Social History Tobacco Use Types Packs/Day Years Used Date Smoking Tobacco: Never Assessed Comments Unknown Sex and Gender Information Value Date Recorded Sex Assigned at Not on file 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
--- OUTSIDE RECORDS SUMMARY | 2024-12-21 11:55 | XMS_ITS | Continuity of Care Document ---
Author Organization [facility] Address [address] [facility] [address] [place] [address] Phone Care Team Providers Care Lead Retail Sales Associate Name Role Phone Ozzie eHrnandez MD Unavailable Unavailable Allergies, Adverse Reactions, Alerts [...] Procedure Date New (Level 4) OFFICE/OUTPATIENT VISIT Ct NURSING PROGRAM MANAGER Registration Fee Advance Directives Directive Yes / [...] [facility], [address] [facility] [address], [place], [place], [id number], tel:[phone] [facility] reaction, food (chief complaint) Other adverse food reaction, initial encounterAbnorm al results of function studies of other systemsLactose intolerance, unspecified [address] David Horne. [address], [place], [address], [place]. tel:[phone] Referring Provider: Michael Leon, [address] [place] [address] [address], [place], [address]. tel:[phone] [facility], [address] [place] [address], [id number], [place] tel:[phone] [facility] No Information 4 [facility] Prov. . Referring Provider: Ozzie Hernandez, [address], [place], [address]. tel:[phone] Family History Family Member Type Diagnosis Age At Onset Mother Problem Rhinitis Problem No family history of Asthma Father Problem Rhinitis Problem Family history of Rhinitis Payers Payer name Insurance type Covered democrat ID Matilde peña(s) [facility] [id number] Social History Type Description Quantity Date Captured [...] was treatedFHAsthma - noneRhinitis - mom, dad, [facility]: Former smoker (2 ppd x 5 years; [...] Prese nt Illness reaction, food Adverse Food Brokaw ctionMilk - She reports diarrhea with milk [...]
--- OUTSIDE RECORDS SUMMARY | 2024-12-21 11:55 | XMS_ITS | Encounter Summary ---
Author Organization [facility] Address [address] [place] [address] Care Team Providers Care Heating Equipment Repairer Name Role Phone Michael Aguilar MD Primary Care Provider [phone] Encounter Details Date Type Department Care Team (Late st Contact Info) Description 05/30/2008 Outpatient [facility] Radiation Oncology [place] [address] [place] [address] [place] [address] Marylin Pearl MD NO ADDRESS ON FILE Deshaun Hickman MD [address] [place] [phone] Malignant Neoplasm of Central Portion of Female Breast (CMS/HCC) Social History Tobacco Use Types Packs/Day Years Used Date Smoking Tobacco: Never Assessed Comments Unknown Sex and Gender Information Value Date Recorded Sex Assigned at Not on file 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 [place] [address] PCP - General Family Practice 08/31/23 documented as of this encounter
--- OUTSIDE RECORDS SUMMARY | 2024-12-21 11:55 | XMS_ITS | Encounter Summary ---
Author Organization [facility] Address [address] [place] [address] Care Team Providers Care Gem Expert Name Role Phone Michael Aguilar MD Primary Care Provider [phone] Encounter Details Date Type Department Care Team (Late st Contact Info) Description 08/09/2008 Outpatient Historical [facility] Radiation Oncology [place] [address] [place] [address] Marylin Pearl MD NO ADDRESS ON FILE Deshaun Hickman MD [address] [place] [phone] Malignant Neoplasm of Central Portion of Female Breast (CMS/HCC) Social History Tobacco Use Types Packs/Day Years Used Date Smoking Tobacco: Never Assessed Comments Unknown Sex and Gender Information Value Date Recorded Sex Assigned at Not on file 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 Sex Female 5:39 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
--- OUTSIDE RECORDS SUMMARY | 2024-12-21 11:56 | XMS_ITS | Encounter Summary ---
Author Organization [facility] Address [address] [place] [address] Care Team Providers Care Enlisted Advisor Name Role Phone Michael Aguilar MD Primary Care Provider [phone] Encounter Details Date Type Department Care Team (Late st Contact Info) Description 10/19/2008 Outpatient Historical [facility] Radiation Oncology [place] [address] [place] [address] Marylin Pearl MD NO ADDRESS ON FILE Deshaun Hickman MD [address] [place] [phone] Malignant Neoplasm of Central Portion of Female Breast (CMS/HCC) Social History Tobacco Use Types Packs/Day Years Used Date Smoking Tobacco: Never Assessed Comments Unknown Sex and Gender Information Value Date Recorded Sex Assigned at Not on file Legal Sex Female 5:39 AM SPINNER FRAME Gender Identity Not on file Sexual Orientation Not on file documented as of this encounter Plan of Treatment Not on file documented as of this encounter Visit Diagnoses Diagnosis Malignant neoplasm of central portion of female breast (CMS/HCC) Malignant neoplasm of central portion of female breast documented in this encounter Care Teams Enlisted Advisor Relationship Specialty Start Date End Date Michael Aguilar MD [facility] [facility] [place] [address] PCP - General Family Practice 08/31/23 documented as of this encounter
--- OUTSIDE RECORDS SUMMARY | 2024-12-21 11:56 | XMS_ITS | Encounter Summary ---
Author Organization [facility] Address [address] [place] [address] Care Team Providers Care Telegraph Repeater Mechanic Name Role Phone Michael Aguilar MD Primary Care Provider [phone] Encounter Details Date Type Department Care Team (Late st Contact Info) Description 11/20/2008 Outpatient Historical [facility] Radiation Oncology [place] [address] [place] [address] Marylin Pearl MD NO ADDRESS ON FILE Deshaun Hickman MD [address] [place] [phone] Malignant Neoplasm of Central Portion of Female Breast (CMS/HCC) Social History Tobacco Use Types Packs/Day Years Used Date Smoking Tobacco: Never Assessed Comments Unknown Sex and Gender Information Value Date Recorded Sex Assigned at Not on file Legal Sex Female 5:39 AM DECALER Gender Identity Not on file Sexual Orientation Not on file documented as of this encounter Plan of Treatment Not on file documented as of this encounter Visit Diagnoses Diagnosis Malignant neoplasm of central portion of female breast (CMS/HCC) Malignant neoplasm of central portion of female breast documented in this encounter Care Teams Telegraph Repeater Mechanic Relationship Specialty Start Date End Date Michael Aguilar MD [facility] [facility] [place] [address] PCP - General Family Practice 08/31/23 documented as of this encounter
--- NOTE | 2024-12-21 12:12 | ECG_ITS ---
Test Date: 2024-12-21 12:33:24 Measurements Intervals [place] Rate: 79 P: 60 MD: 151 QRS: 47 QRSD: 78 T: 50 QT: 370 QTc: 426 Interpretive Statements SINUS RHYTHM POSSIBLE LEFT ATRIAL ENLARGEMENT BORDERLINE ST ABNORMALITY- ANTEROLAT/INF LEADS BASELINE ARTIFACT- I, III, AVR, AVL, AVF BORDERLINE ECG No previous ECG available for comparison Electronically Signed On 12-21-2024 13:15:42 CDT by Tony Vasquez D.O.
[2024-12-21 12:26] LABS: Hematocrit 44.7 % (37.0-47.0); Hemoglobin 14.6 g/dL (12.0-15.0)
[2024-12-21 12:44] LABS: Albumin Level 4.8 g/dL (3.5-5.1); Estimated Glomerular Filt Rate > 60
[2024-12-21 14:19] LABS: Urine Cotinine NEGATIVE
== END 2024-12-21 11:53 | disposition home or self-care (01) ==
LOC: ANHLAB 11:54
PROVIDERS: PCP Family Medicine; Visit Provider Orthopaedic Surgery
DX: M16.11 Unilateral primary osteoarthritis, right hip (principal); I10 Essential (primary) hypertension; R74.8 Abnormal levels of other serum enzymes; Z79.899 Other long term (current) drug therapy; R94.31 Abnormal electrocardiogram [ECG] [EKG]
CPT/HCPCS: 80307; 82040; 82565; 85014; 85018; 93005

== ENCOUNTER 2025-01-21 09:01 | Outpatient (CLI) | payer MEDICARE, SELFPAY ==
--- OUTSIDE RECORDS SUMMARY | 2025-01-21 09:08 | XMS_ITS | Encounter Summary ---
Author Organization [facility] Address [address] [place] [address] Care Team Providers Care Hay Stacker Operator Name Role Phone Michael Aguilar MD Primary Care Provider [phone] Encounter Details Date Type Department Care Team (Late st Contact Info) Description 11/20/2008 Outpatient Historical [facility] Radiation Oncology [place] [address] [place] [address] Marylin Pearl MD NO ADDRESS ON FILE Deshaun Hickman MD [address] [place] [id number] Malignant Neoplasm of Central Portion of Female Breast (CMS/HCC) Social History Tobacco Use Types Packs/Day Years Used Date Smoking Tobacco: Never Assessed Comments Unknown Sex and Gender Information Value Date Recorded Sex Assigned at Not on file Legal Sex Female 5:39 AM YARN SKEINS EXAMINER Gender Identity Not on file Sexual Orientation Not on file documented as of this encounter Plan of Treatment Not on file documented as of this encounter Visit Diagnoses Diagnosis Malignant neoplasm of central portion of female breast (CMS/HCC) Malignant neoplasm of central portion of female breast documented in this encounter Care Teams Hay Stacker Operator Relationship Specialty Start Date End Date Michael Aguilar MD [facility] [facility] [place] [address] PCP - General Family Practice 08/31/23 documented as of this encounter
--- OUTSIDE RECORDS SUMMARY | 2025-01-21 09:08 | XMS_ITS | Continuity of Care Document ---
Author Organization [facility] Address [address] [facility] [address] [place] [address] Phone Care Team Providers Care Home Visit Field Care Manager Name Role Phone Ozzie Hernandez MD Unavailable [...] Procedure Date New (Level 4) OFFICE/OUTPATIENT VISIT De [place] [address] ATTENDANT Registration Fee Advance Directives Directive Yes / [...] [facility], [address] [facility] [address], [place], [place], [id number], tel:[phone] [facility] reaction, food (chief complaint) Other adverse food reaction, initial encounterAbnorm al results of function studies of other systemsLactose intolerance, unspecified 4 David Horne. [address], [place], [address], [place]. tel:[phone] Referring Provider: Michael Leon, [address] [place] [address] [address], [place], [address]. tel:[phone] [facility], [address] [place] [address], [id number], [place] tel:[phone] [facility] No Information 4 [facility] Prov. . Referring Provider: Ozzie Hernandez, [address], [place], [address]. tel:[phone] Family History Family Member Type Diagnosis Age At Onset Mother Problem Rhinitis Problem No family history of Asthma Father Problem Rhinitis Problem Family history of Rhinitis Payers Payer name Insurance type Covered alliance party ID Matilde peña(s) [facility] [id number] Social History Type Description Quantity Date Captured [...] was treatedFHAsthma - noneRhinitis - mom, dad, childrenWashington Health Systemo: Former smoker (2 ppd x [...] Prese nt Illness reaction, food Adverse Food [place] ctionMilk - She reports diarrhea with milk [...]
--- OUTSIDE RECORDS SUMMARY | 2025-01-21 09:08 | XMS_ITS | Encounter Summary ---
Author Organization [facility] Address 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 Breast (CMS/HCC) Social History Tobacco Use Types Packs/Day Years Used Date Smoking Tobacco: Never Assessed Comments Unknown Sex and Gender Information Value Date Recorded Sex Assigned at Not on file Legal Sex Female 5:39 AM BOX PULLER Gender Identity Not on file Sexual Orientation Not on file documented as of this encounter Plan of Treatment Not on file documented as of this encounter Visit Diagnoses Diagnosis Malignant neoplasm of central portion of female breast (CMS/HCC) Malignant neoplasm of central portion of female breast documented in this encounter Care Teams Telescope Operator Relationship Specialty Start Date End Date Michael Aguilar MD [facility] [facility] [place] [address] PCP - General Family Practice 08/31/23 documented as of this encounter
--- OUTSIDE RECORDS SUMMARY | 2025-01-21 09:08 | XMS_ITS | Encounter Summary ---
Author Organization [facility] Address 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) Social History Tobacco Use Types Packs/Day Years Used Date Smoking Tobacco: Never Assessed Comments Unknown Sex and Gender Information Value Date Recorded Sex Assigned at Not on file Legal Sex Female 5:39 AM EDITOR GREETING CARD Gender Identity Not on file Sexual Orientation Not on file documented as of this encounter Plan of Treatment Not on file documented as of this encounter Visit Diagnoses Diagnosis Malignant neoplasm of central portion of female breast (CMS/HCC) Malignant neoplasm of central portion of female breast documented in this encounter Care Teams Staffing Analyst Relationship Specialty Start Date End Date Michael Aguilar MD [address] [facility] [place] [address] PCP - General Family Practice 08/31/23 documented as of this encounter
--- OUTSIDE RECORDS SUMMARY | 2025-01-21 09:08 | XMS_ITS | Encounter Summary ---
Author Organization [facility] Address 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) Social History Tobacco Use Types Packs/Day Years Used Date Smoking Tobacco: Never Assessed Comments Unknown Sex and Gender Information Value Date Recorded Sex Assigned at Not on file Legal Sex Female 5:39 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 [place] [address] PCP - General Family Practice 08/31/23 documented as of this encounter
--- OUTSIDE RECORDS SUMMARY | 2025-01-21 09:08 | XMS_ITS | Encounter Summary ---
Author Organization [facility] Address [address] [place] [address] Care Team Providers Care Vice President Of Software Engineering Name Role Phone Michael Aguilar MD Primary Care Provider [phone] Encounter Details Date Type Department Care Team (Late st Contact Info) Description 05/30/[address] 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 Gender Identity Not on file Sexual Orientation Not on file documented as of this encounter Plan of Treatment Not on file documented as of this encounter Visit Diagnoses Diagnosis Malignant neoplasm of central portion of female breast (CMS/HCC) Malignant neoplasm of central portion of female breast documented in this encounter Care Teams Vice President Of Software Engineering Relationship Specialty Start Date End Date Michael Aguilar MD [facility] [facility] [place] [address] PCP - General Family Practice 08/31/23 documented as of this encounter
--- OUTSIDE RECORDS SUMMARY | 2025-01-21 09:08 | XMS_ITS | Encounter Summary ---
Author Organization [employer] Address [address] [place] [address] Care Team Providers Care Sales Floor Manager Name Role Phone Michael Aguilar MD Primary Care Provider [phone] Encounter Details Date Type Department Care Team (Latest Contact Info) Description 01/08/2009 Outpatient Historical [facility] Dflt Department Joy Olmedo MD [address] [place] [address] [place] [address] Encounter for Antineoplastic Chemotherapy Social History Tobacco Use Types Packs/Day Years Used Date Smoking Tobacco: Never Assessed Comments Unknown Sex and Gender Information Value Date Recorded Sex Assigned at Not on file Legal Sex Female 5:39 AM HOME HEALTH CLINICIAN Gender Identity Not on file Sexual Orientation Not on file documented as of this encounter Plan of Treatment Not on file documented as of this encounter Visit Diagnoses Diagnosis Encounter for antineoplastic chemotherapy documented in this encounter Care Teams Sales Floor Manager Relationship Specialty Start Date End Date Michael Aguilar MD [address] [facility] [place] [address] PCP - General Family Practice 08/31/23 documented as of this encounter
--- OUTSIDE RECORDS SUMMARY | 2025-01-21 09:08 | XMS_ITS | Clinical Summary ---
Author Organization [facility] Address [address] [place] [address] Care Team Providers Care Sr. 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 282 after treatmetn for BOOP 87 in January Flow of peripheral blood was normal. Bone marrow bx Breast cancer 01/13/2009 Overview (05/08/2013): 04/22/08 Stage I ([id number]) IDC RIGHT breast ER50% PR70% HER2 - [...] months Assessment & Plan (07/16/2010 3:01 PM SAIL MAKER): ITP and breast cancer Mammogram in Apr [...] months Assessment & Plan (06/27/2009 11:13 AM SAIL MAKER): Mammogram 05/05/09 negative 1 yr out from [...] Encounters Date Type Department Care Team Description 12/26/2024 External Device Data [facility] ABSTRACTION Provider, Abstract 12/04/2024 11:03 AM CDT - 12/04/2024 11:59 PM CDT Hospital Encounter [facility] Toño [place] [place] [address] Bella Nolasco DO Discharge Disposition: Home or Self Care 11/27/2024 [...] on file Legal Sex Female 5:39 AM SAIL MAKER Gender Identity Not on file Sexual Orientation Not on file Occupation Industry Job Start Date Job End Date Not on file Not on file Not on file Not on file Last Filed Vital Signs Vital Sign Reading Time Taken Comments Blood Pressure 130/70 06/03/2020 12:21 PM SAIL MAKER Pulse 65 06/03/2020 12:21 PM SAIL MAKER Temperature 36.7 C (98.1 F) 06/03/2020 12:21 PM SAIL MAKER Respiratory Rate 18 06/03/2020 12:21 PM SAIL MAKER Oxygen Saturation 99% 06/03/2020 12:21 PM SAIL MAKER Inhaled Oxygen Concentration - - Weight 62.1 kg (137 lb) 06/03/2020 12:21 PM SAIL MAKER Height 168.9 cm (5' 6.5) 06/03/2020 12:21 PM CS T Body Mass Index 21.78 06/03/2020 12:21 PM SAIL MAKER Plan of Treatment Health Maintenance Due Date Last Done Comments DTAP/TDAP/TD VACCINES (1 - Tdap) 1975 FIT-DNA Q 3 years 2001 FIT/FOBT Q 1 year 2001 Flex Sig/CT Colonography Q 5 years 2001 PNEUMOCOCCAL VACCINE 50+ YEA RS (1 of 1 - PCV) 2006 ZOSTER VACCINE (1 of 2) 2006 COLORECTAL SCREENING 02/09/2020 02/08/2010 (Previously completed) Colorectal Cancer Screening 02/09/2020 INFLUENZA VACCINE (#1) 2025 03/27/2011 OSTEOPOROSIS SCREENING 10/11/2025 , 06/14/2019, 07/10/2014, Additional history exists BREAST CANCER [...] 1 - Negative DICTATION LOCATION: Rebeca Saunders [place] 12/04/2024 11:41 AM CDT BILATERAL SCREENING DIGITAL [...] reviewed using the CAD system. us Bella Nolasco DO MAMMO ORDERABLES Final Res ult * XR DEXA BONE DENSITY AXIAL 1 OR MORE SITES (10/12/2023 10:38 AM CDT) Anatomical Region Laterality Modality Computed Radiogr aphy 10/12/2023 10:3 8 AM CDT Impressions 10/12/2023 4:24 PM CDT IMPRESSION: This is a summary page. Please refer to the complete detailed report found in the Imaging Section of the [facility] [place] [facility] EMR, including absolute bone mineral density values. [...] years thereafter [facility]ATION: [facility] 10/12/2023 4:24 PM CDT EXAMINATION: BONE [...] found in the Imaging Section of the [facility] [place] [facility] EMR, including absolute bone mineral density values. [...] every 2 years thereafter DICTATION LOCATION: Location [address] [place] [address] [facility] Carolyn Aguilar MD DIAGNOSTIC IMAGING ORDERABLES Fi nal Result from Last 3 Months or Most Recently Relevant to Health Maintenance Insurance RX [employer] [employer] [facility] Care Teams Sr. Director Relationship Specialty Start Date End Date Michael Aguilar MD [address] [facility] [place] [address] PCP - General Family Practice 08/31/23
--- OUTSIDE RECORDS SUMMARY | 2025-01-21 09:08 | XMS_ITS | Encounter Summary ---
Author Organization [facility] Address 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) Social History Tobacco Use Types Packs/Day Years Used Date Smoking Tobacco: Never Assessed Comments Unknown Sex and Gender Information Value Date Recorded Sex Assigned at Not on file Legal Sex Female 5:39 AM PHOTOGRAPHY SPOTTER Gender Identity Not on file Sexual Orientation Not on file documented as of this encounter Plan of Treatment Not on file documented as of this encounter Visit Diagnoses Diagnosis Malignant neoplasm of central portion of female breast (CMS/HCC) Malignant neoplasm of central portion of female breast documented in this encounter Care Teams College Physics Instructor Relationship Specialty Start Date End Date Michael Aguilar MD [facility] [place] [address] PCP - General Family Practice 08/31/23 documented as of this encounter
[2025-01-21 17:37] LABS: Hematocrit 41.6 % (37.0-47.0); Hemoglobin 13.4 g/dL (12.0-15.0); Mean Corpuscular HGB Conc 32.2 g/dl (32-36); Mean Corpuscular Hemoglobin 29.7 pg (26-34); Mean Corpuscular Volume 92.2 fl (80-100); Platelet Count Result 147 k/mm3 (150-375); Red Blood Count 4.51 M/mm3 (4.2-5.4); White Blood Count 5.4 K/mm3 (4.5-10.0)
[2025-01-21 17:38] LABS: Alanine Aminotransferase 41 U/L (6-35); Albumin Level 4.3 g/dL (3.5-5.1); Alkaline Phosphatase 61 U/L (38-126); Anion Gap 7 mmol/L (4-12); Aspartate Amino Transferase 48 U/L (14-36); Bilirubin,Total 0.5 mg/dL (0.2-1.3); Blood Urea Nitrogen 17 mg/dL (7-17); Calcium 9.0 mg/dL (8.4-10.2); Carbon Dioxide 27 mmol/L (22-30); Chloride 105 mmol/L (98-107); Cholesterol 204 mg/dL (0-200); Estimated Glomerular Filt Rate > 60; Glucose 93 mg/dL (65-110); HDL Direct 56 mg/dL; Potassium 3.7 mmol/L (3.4-5.0); Sodium 139 mmol/L (137-145); Total Protein 7.5 g/dL (6.3-8.2); Triglycerides 72 mg/dL (<150)
[2025-01-21 18:10] LABS: Free T4 Free Thyroxine 1.33 ng/dL (0.78-2.19)
[2025-01-21 19:28] LABS: Thyroid Stimulating Hormone 2.630 uIU/mL (0.465-4.680)
== END 2025-01-21 09:02 | disposition home or self-care (01) ==
LOC: ANHGOSHLAB 09:02
PROVIDERS: PCP Family Medicine; Visit Provider Family Medicine
DX: E03.9 Hypothyroidism, unspecified (principal); I10 Essential (primary) hypertension; R74.8 Abnormal levels of other serum enzymes; Z79.899 Other long term (current) drug therapy
CPT/HCPCS: 36415; 80053; 80061; 84439; 84443; 85027

== ENCOUNTER 2025-02-22 07:38 | Outpatient (CLI) | payer MEDICARE, SELFPAY ==
--- OUTSIDE RECORDS SUMMARY | 2025-02-22 07:41 | XMS_ITS | Continuity of Care Document ---
Author Organization [facility] Address [address] [facility] [address] [place] [address] Phone Care Team Providers Care Rigger Helper Name Role Phone Ozzie Hernandez MD Unavailable [...] Procedure Date New (Level 4) OFFICE/OUTPATIENT VISIT Vt ROOF PLUMBER Registration Fee Advance Directives Directive Yes / [...] [facility], [address] [facility] [address], [place], [place], [id number], tel:[phone] [facility] reaction, food (chief complaint) Other adverse food reaction, initial encounterAbnorm al results of function studies of other systemsLactose intolerance, unspecified 4 David Horne. [address], [place], [address], [place]. tel:[phone] Referring Provider: Michael Leon, [address] [place] [address] [address], [place], [address]. tel:[phone] [facility], [address] [place] [address], [id number], [place] tel:[phone] [facility] No Information 4 [facility] Prov. . Referring Provider: Ozzie Hernandez, [address], [place], [address]. tel:[phone] Family History Family Member Type Diagnosis Age At Onset Mother Problem Rhinitis Problem No family history of Asthma Father Problem Rhinitis Problem Family history of Rhinitis Payers Payer name Insurance type Covered democrat ID Matilde peña(s) [facility] [id number] Social History Type Description Quantity Date Captured [...] was treatedFHAsthma - noneRhinitis - mom, dad, childrenEinstein [facility] Montgomeryo: Former smoker (2 ppd x 5 years; [...]
--- OUTSIDE RECORDS SUMMARY | 2025-02-22 07:41 | XMS_ITS | Encounter Summary ---
Author Organization [facility] Address [address] [place] [address] Care Team Providers Care Donor Support Technician Name Role Phone Michael Aguilar MD Primary Care Provider [phone] Encounter Details Date Type Department Care Team (Late st Contact Info) Description 09/17/2008 Outpatient Historical [facility] Radiation Oncology [place] 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) Social History Tobacco Use Types Packs/Day Years Used Date Smoking Tobacco: Never Assessed Comments Unknown Sex and Gender Information Value Date Recorded Sex Assigned at Not on file Legal Sex Female 5:39 AM HOME DESIGNER Gender Identity Not on file Sexual Orientation Not on file documented as of this encounter Plan of Treatment Not on file documented as of this encounter Visit Diagnoses Diagnosis Malignant neoplasm of central portion of female breast (CMS/HCC) Malignant neoplasm of central portion of female breast documented in this encounter Care Teams Donor Support Technician Relationship Specialty Start Date End Date Michael Aguilar MD [facility] [facility] [place] [address] PCP - General Family Practice 08/31/23 documented as of this encounter
--- OUTSIDE RECORDS SUMMARY | 2025-02-22 07:41 | XMS_ITS | Clinical Summary ---
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 282 after treatmetn for BOOP 87 in January Flow of peripheral blood was normal. Bone marrow bx Breast cancer 01/13/2009 Overview (05/08/2013): 04/22/08 Stage I ([id number]) IDC RIGHT breast ER50% PR70% HER2 - [...] months Assessment & Plan (07/16/2010 3:01 PM BURNISHER): ITP and breast cancer Mammogram in Apr [...] months Assessment & Plan (06/27/2009 11:13 AM BURNISHER): Mammogram 05/05/09 negative 1 yr out from [...] Encounters Date Type Department Care Team Description 02/19/2025 External Device Data [facility] ABSTRACTION Provider, Abstract 01/23/2025 External Device Data [facility] ABSTRACTION Provider, Abstract 01/23/2025 External Device Data [facility] ABSTRACTION Provider, Abstract 12/26/2024 External Device Data [facility] ABSTRACTION Provider, Abstract 12/04/2024 11:03 AM CDT - 12/04/2024 11:59 PM CDT Hospital Encounter [facility] Toño Sa[address] [place] [address] Bella Nolasco DO [...] on file Legal Sex Female 5:39 AM BURNISHER Gender Identity Not on file Sexual Orientation Not on file Occupation Industry Job Start Date Job End Date Not on file Not on file Not on file Not on file Last Filed Vital Signs Vital Sign Reading Time Taken Comments Blood Pressure 130/70 06/03/2020 12:21 PM BURNISHER Pulse 65 06/03/2020 12:21 PM BURNISHER Temperature 36.7 C (98.1 F) 06/03/2020 12:21 PM BURNISHER Respiratory Rate 18 06/03/2020 12:21 PM BURNISHER Oxygen Saturation 99% 06/03/2020 12:21 PM BURNISHER Inhaled Oxygen Concentration - - Weight 62.1 kg (137 lb) 06/03/2020 12:21 PM BURNISHER Height 168.9 cm (5' 6.5) 06/03/2020 12:21 PM CS T Body Mass Index 21.78 06/03/2020 12:21 PM BURNISHER Plan of Treatment Health Maintenance Due Date [...] VACCINE (#1) 2025 03/27/2011 OSTEOPOROSIS SCREENING 10/11/2025 4, 06/14/2019, 07/10/2014, [...] 1 - Negative DICTATION LOCATION: Rebeca Saunders [facility] 12/04/2024 11:41 AM CDT BILATERAL SCREENING DIGITAL [...] images were reviewed using the CAD system. Bella Northchrissydalton DO MAMMO ORDERABLES Final Res ult * XR DEXA BONE DENSITY AXIAL 1 OR MORE SITES (10/12/2023 10:38 AM CDT) Anatomical Region Laterality Modality Computed Radiogr aphy 10/12/2023 10:3 8 AM CDT Impressions 10/12/2023 4:24 PM CDT IMPRESSION: This is a summary page. Please refer to the complete detailed report found in the Imaging Section of the [facility] [employer] EMR, including absolute bone mineral density values. [...] years thereafter DICTATION LOCATION: Location 1 - [facility] 10/12/2023 4:24 PM CDT EXAMINATION: BONE DENSITY [...] the Imaging Section of the [facility] EMR, including absolute bone mineral density [...] and every 2 years thereafter DICTATION LOCATION: [address] Michael Aguilar MD DIAGNOSTIC IMAGING ORDERABLES Fi nal Result from Last 3 Months or Most Recently Relevant to Health Maintenance Insurance RX [facility] [employer] [facility] Care Teams Media Specialist Relationship Specialty Start Date End Date Michael Aguilar MD [address] [facility] [place] [address] PCP - General Family Practice 08/31/23
--- OUTSIDE RECORDS SUMMARY | 2025-02-22 07:42 | XMS_ITS | Encounter Summary ---
Author Organization [facility] Address [address] [place] [address] Care Team Providers Care Paste Thinner Name Role Phone Michael Aguilar MD Primary Care Provider [phone] Encounter Details Date Type Department Care Team (Latest Contact Info) Description 06/12/2008 Outpatient Historical [facility] Radiation Oncology [place] [address] [place] [address] [place] [address] Marylin Pearl MD NO ADDRESS ON FILE Malignant Neoplasm of Central Portion of Female Breast (CMS/HCC) Social History Tobacco Use Types Packs/Day Years Used Date Smoking Tobacco: Never Assessed Comments Unknown Sex and Gender Information Value Date Recorded Sex Assigned at Not on file Legal Sex Female 5:39 AM PHOTOGRAPHIC EDITOR Gender Identity Not on file Sexual Orientation Not on file documented as of this encounter Plan of Treatment Not on file documented as of this encounter Visit Diagnoses Diagnosis Malignant neoplasm of central portion of female breast (CMS/HCC) Malignant neoplasm of central portion of female breast documented in this encounter Care Teams Paste Thinner Relationship Specialty Start Date End Date Michael Aguilar MD [address] [facility] [place] [address] PCP - General Family Practice 08/31/23 documented as of this encounter
--- OUTSIDE RECORDS SUMMARY | 2025-02-22 07:42 | XMS_ITS | Encounter Summary ---
Author Organization [facility] Address [address] [place] [address] Care Team Providers Care Getter Operator Name Role Phone Michael Aguilar MD Primary Care Provider Encounter Details Date Type Department Care Team (Late st Contact Info) Description 08/09/2008 Outpatient Historical [facility] Radiation [place]cology [place] [address] [place] [address] Marylin Pearl MD NO ADDRESS ON FILE Deshaun Hickman MD [address] [place] [phone] Malignant Neoplasm of Central Portion of Female Breast (CMS/HCC) Social History Tobacco Use Types Packs/Day Years Used Date Smoking Tobacco: Never Assessed Comments Unknown Sex and Gender Information Value Date Recorded Sex Assigned at Not on file Legal Sex Female 5:39 AM CURRICULUM DEVELOPMENT SPECIALIST Gender Identity Not on file Sexual Orientation Not on file documented as of this encounter Plan of Treatment Not on file documented as of this encounter Visit Diagnoses Diagnosis Malignant neoplasm of central portion of female breast (CMS/HCC) Malignant neoplasm of central portion of female breast documented in this encounter Care Teams Getter Operator Relationship Specialty Start Date End Date Michael Aguilar MD [facility] [facility] [place] [address] PCP - General Family Practice 08/31/23 documented as of this encounter
--- OUTSIDE RECORDS SUMMARY | 2025-02-22 07:42 | XMS_ITS | Encounter Summary ---
Author Organization [facility] Address 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) Social History Tobacco Use Types Packs/Day Years Used Date Smoking Tobacco: Never Assessed Comments Unknown Sex and Gender Information Value Date Recorded Sex Assigned at Not on file Legal Sex Female 5:39 AM SHIFT FOREMAN Gender Identity Not on file Sexual Orientation Not on file documented as of this encounter Plan of Treatment Not on file documented as of this encounter Visit Diagnoses Diagnosis Malignant neoplasm of central portion of female breast (CMS/HCC) Malignant neoplasm of central portion of female breast documented in this encounter Care Teams Spa Consultant Relationship Specialty Start Date End Date Michael Aguilar MD [facility] [facility] [place] [phone] PCP - General Family Practice 08/31/23 documented as of this encounter
--- OUTSIDE RECORDS SUMMARY | 2025-02-22 07:42 | XMS_ITS | Encounter Summary ---
Author Organization [facility] Address [address] [place] [address] Care Team Providers Care Bin Piler Name Role Phone Michael Aguilar MD Primary Care Provider [phone] Encounter Details Date Type Department Care Team (Late st Contact Info) Description 11/20/2008 Outpatient Historical [facility] Radiation Oncology [place] [address] [place] [address] Marylin Pearl MD NO ADDRESS ON FILE Deshaun Hickman MD [address] [place] [phone] Malignant Neoplasm of Central Portion of Female Breast (CMS/HCC) Social History Tobacco Use Types Packs/Day Years Used Date Smoking Tobacco: Never Assessed Comments Unknown Sex and Gender Information Value Date Recorded Sex Assigned at Not on file Legal Sex Female 5:39 AM GILL BOX OPERATOR Gender Identity Not on file Sexual Orientation Not on file documented as of this encounter Plan of Treatment Not on file documented as of this encounter Visit Diagnoses Diagnosis Malignant neoplasm of central portion of female breast (CMS/HCC) Malignant neoplasm of central portion of female breast documented in this encounter Care Teams Bin Piler Relationship Specialty Start Date End Date Michael Aguilar MD [facility] [facility] [address] PCP - General Family Practice 08/31/23 documented as of this encounter
--- OUTSIDE RECORDS SUMMARY | 2025-02-22 07:42 | XMS_ITS | Encounter Summary ---
Author Organization [employer] Address [address] [place] [address] Care Team Providers Care Floral Arranger Name Role Phone Michael Aguilar MD Primary Care Provider [phone] Encounter Details Date Type Department Care Team (Latest Contact Info) Description 01/08/2009 Outpatient Historical [facility] Dflt Department Joy Olmedo MD [address] [place] [address] [place] [phone] Encounter for Antineoplastic Chemotherapy Social History Tobacco Use Types Packs/Day Years Used Date Smoking Tobacco: Never Assessed Comments Unknown Sex and Gender Information Value Date Recorded Sex Assigned at Not on file 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
--- OUTSIDE RECORDS SUMMARY | 2025-02-22 07:42 | XMS_ITS | Encounter Summary ---
Author Organization [facility] Address [address] [place] [address] Care Team Providers Care Spacecraft Systems Engineer Name Role Phone Michael Aguilar MD Primary Care Provider [phone] Encounter Details Date Type Department Care Team (Late st Contact Info) Description 05/30/2008 Outpatient [facility] Radiation Oncology [place] [address] [place] [address] Marylin Pearl MD NO ADDRESS ON FILE Deshaun Hickman MD [address] [place] [phone] Malignant Neoplasm of Central Portion of Female Breast (CMS/HCC) Social History Tobacco Use Types Packs/Day Years Used Date Smoking Tobacco: Never Assessed Comments Unknown Sex and Gender Information Value Date Recorded Sex Assigned at Not on file 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 [facility] [place] [address] PCP - General Family Practice 08/31/23 documented as of this encounter
--- NOTE | 2025-02-22 07:58 | ECHO_ITS ---
Patient Info Name: Vicenta Rouse Age: 69 years : 1955 Gender: Female Ht: 66 in Wt: 145 lbs BSA: 1.76 m2 BP: 152 / 94 mmHg Technical Quality: Good Exam Date: 02/22/2025 8:12 AM Patient Status: O Admit Date: 02/22/2025 Exam Type: CA echo doppler color flow Complete two-dimensional, color flow and Doppler transthoracic echocardiogram is performed. [employer]point Consultant: Maricarmen Hardy Attending Provider: Tony Vasquez DO Summary 1. Complete two-dimensional, color flow and Doppler transthoracic echocardiogram is performed. 2. Left ventricular chamber dimension is normal. 3. Left ventricular systolic function is normal, estimated at 60-65. 4. The left ventricular diastolic function is grade I diastolic dysfunction. 5. E/e' 12 is mildly elevated. 6. There is mild mitral valve regurgitation. Left Ventricle E/e' 12 is mildly elevated. Left ventricular chamber dimension is normal. Left ventricular systolic function is normal, estimated at 60-65. The left ventricular diastolic function is grade I diastolic dysfunction. Right Ventricle Right ventricular chamber dimension is normal. Right ventricular systolic function is normal and with normal TAPSE 1.9 cm. Left Atria Left atrial chamber dimension is normal. Right Atria Right atrial chamber dimension is normal. Aortic Valve The aortic valve is trileaflet. There is no aortic valve stenosis. There is no aortic valve regurgitation. Pulmonic Valve There is no pulmonic regurgitation. Mitral Valve There is no mitral valve stenosis. There is mild mitral valve regurgitation. Tricuspid Valve There is no tricuspid valve regurgitation. Pericardium/Pleural There is no pericardial effusion. Inferior Vena Cava Normal inferior vena cava with >50% collapse upon inspiration consistent with normal right atrial pressure, 5 mmHg. Aorta The aortic root size at the sinus of Valsalva is normal. Left Ventricular Outflow Tract Name Value Normal LVOT 2D LVOT Diameter 2.0 cm LVOT Doppler LVOT Peak Velocity 89 cm/s LVOT Peak Gradient 3 mmHg LVOT Mean Gradient 2 mmHg LVOT VTI 22 cm LVOT Stroke Volume 69 ml LVOT CO 4.1 l/min LVOT CI 2.3 l/min/m2 Pulmonic Valve Name Value Normal RVOT Doppler RVOT Peak Velocity 76 cm/s RVOT Peak Gradient 2 mmHg PV Doppler PV Peak Velocity 87 cm/s PV Peak Gradient 3 mmHg Mitral Valve Name Value Normal MV Diastolic Function MV E Peak Velocity 68 cm/s MV A Peak Velocity 80 cm/s MV E/A 0.8 MV Decel Time (PW) 224 ms MV Annular TDI MV E/e' (Septal) 15.8 MV E/e' (Lateral) 10.4 MV E/e' (Average) 13.1 Tricuspid Valve Name Value Normal Estimated PAP/RSVP RA Pressure 5 mmHg <=5 Aortic Valve Name Value Normal AV Doppler AV Peak Velocity 106 cm/s AV Peak Gradient 5 mmHg AV Area (Cont Eq Mannie) 2.7 cm2 AV DI (Mannie) 0.84 AV Regurgitation 2D LVOT Area 3.2 cm2 Ventricles Name Value Normal LV Dimensions 2D/MM IVS Diastolic Thickness (2D) 0.8 cm 0.6-1.0 LVID Diastole (2D) 3.5 cm 3.8-5.2 LVIW Diastolic Thickness (2D) 1.0 cm 0.6-0.9 LVID Systole (2D) 2.0 cm 2.2-3.5 LVOT Diameter 2.0 cm LV Mass (2D Cubed) 91.18 g 67.00-162.00 LV Mass Index (2D Cubed) 52 g/m2 43-95 Relative Wall Thickness (2D) 0.60 <=0.42 LV Fractional Shortening/Ejection Fraction 2D/MM LV Fractional Shortening (2D) 42 % 27-45 LV EF (2D Teichholz) 75 % LV Diastolic Volume (4C MOD) 75 ml LV EF (4C MOD) 62 % LV Diastolic Volume (2C MOD) 89 ml LV EF (2C MOD) 64 % LV Diastolic Volume (BP MOD) 82 ml 46-106 LV Diastolic Volume Index (BP MOD) 47 ml/m2 29-61 LV Systolic Volume (BP MOD) 31 ml 14-42 LV Systolic Volume Index (BP MOD) 18 ml/m2 8-24 LV EF (BP MOD) 63 % 54-74 LV Diastolic Length (4C) 7.7 cm LV Systolic Length (4C) 6.9 cm LV Stroke Volume (4C MOD) 47 ml Atria Name Value Normal LA Dimensions LA Volume (4C A-L) 20 ml LA Volume (BP A-L) 32 ml RA Dimensions RA Systolic [place] Length (4C) 4.6 cm 2.2-2.8 RA Area (4C) 10.8 cm2 <=18.0 Report Signatures
== END 2025-02-22 07:39 | disposition home or self-care (01) ==
PROVIDERS: PCP Family Medicine; Visit Provider Internal Medicine Cardiovascular Disease
DX: I10 Essential (primary) hypertension (principal)
CPT/HCPCS: 93306

== ENCOUNTER 2025-03-15 09:59 | Outpatient (CLI) | payer MEDICARE, SELFPAY ==
--- OUTSIDE RECORDS SUMMARY | 2023-09-14 09:00 | XMS_ITS | Continuity of Care Document ---
Author Organization [facility] Address [address] [facility] [address] [place] [address] Phone Care Team Providers Care Financial Reporting Consultant Name Role Phone Ozzie Hernandez MD Unavailable Unavailable Allergies, Adverse Reactions, Alerts Substance Reaction Status Criticality docetaxel Rash Active No Information Sulfa (Sulfonamide Antibiotics) Active No Information nitrofurantoin PalpitationsDyspnea Active Unable to Assess erythromycin base Active No Informa tion Medications Medication Instructions Dosage Effective Dates (start - stop) Status Comments levothyroxine 75 mcg capsule take 1 capsule by oral route every day 75 MCG - Active lorazepam 0.5 mg tablet - Ac tive Procedures Procedure Date New (Level 4) OFFICE/OUTPATIENT VISIT 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 Please verify the information with the cleary of the legal document before using it for clinical purposes. Encounters Encounter Description Practice Location Reason(s) For Visit Diagnoses Date Provider Providers Copied on Encounter New (Level 4) OFFICE/OUTPA TIENT VISIT [facility], [address] [facility] [address], [place], [place], [id number], tel:[phone] [facility] reaction, food (chief complaint) Other adverse food reaction, initial encounterAbnorm al results of function studies of other systemsLactose intolerance, unspecified 4 David Horne. [address], [place], [address], [place]. tel:[phone] Referring Provider: Michael Leon, [address] [place] [address] [address], [place], [address]. tel:[phone] [facility], [address] [place] [address], [id number], [place] tel:[phone] [facility] No Information 4 [facility] Prov. . Referring Provider: Ozzie Hernandez, [address], [place], [address]. tel:[phone] Family History Family Member Type Diagnosis Age At Onset Mother Problem Rhinitis Problem No family history of Asthma Father Problem Rhinitis Problem Family history of Rhinitis Payers Payer name Insurance type Covered green party ID Matilde peña(s) [facility] [id number] Social History Type Description Quantity Date Captured Comments Alcohol Use Details Unknown Caffeine Use Details Unknown Tobacco Use Status Ex-cigarette smoker Smoking Status Former smoker Lives in a house (built 2003) w/ central air/forced heat, w/o evidence of mold/water damageFlooring in Bedroom: hard flooringPets: none Smoking Tobacco Use Details Cigarette: Age Stopped: 33, Years Used 5 Cigarette: 2 Packs per day, Pack Year: 10 Sex Female Gender Identity Vital Signs Date / Time: Height Weight BMI Pulse Rate Blood Pressure Temperature Respiratory Rate Body Surface Area Head Circumference Head Circ. Percentile Wt./Apolinar. Percentile BMI percentile Pulse Ox Inhaled Ox 1:53 PM 67.00 in 65.408 kg (144.20 lbs) 22.5 8 kg/m eter (2) 76 /min 132/88 mm[Hg] 97.50 F 1.76 meter(2) 97 % Chief Complaint And Reason For Visit From encounter dated '09/14/2023 14:00'. reaction, food (chief complaint). Description: Adverse Food ReactionMilk - She reports diarrhea with milk dairy products (not consistently). Her symptoms tend to occur after milk more than sour creamor yogurt. She tolerates cheese. No associated rash or swelling. No dyspnea. She does use lactaid with benefit.Wheat - She reports diarrhea wheat containing products. She reports itchy hands and feet, occasionally tongue pruritus, without hives or swelling. These symptoms do not occur with small volume ingestions, but can happen with larger volume ingestions. No dyspnea with any episodes. She does report sensation of palpitations or lightheadedness (she relates this to symptoms of a panic attack ). However, use of gluten-free products has also sometimes resulted in symptoms. She worries about having food intolerances. She is not avoiding any foods at this time.She has no history of asthma. She has mild rhinitis, occasionally uses OAH PRN (not frequently).PMH: hypothyroidism, breast cancer (in remission) PSH: lumpectomyMedication Allergies:Erythromycin - Does not recall the details, perhaps rashNitrofurantoin - She had palpitations, dyspnea.Sulfa Abx - Does not recallTaxotere - She had a rash (papular). She does not recall the details of how this was treatedFHAsthma - noneRhinitis - mom, dad, childrenForbes Hospitalo: Former smoker (2 ppd x 5 years; quit 35 years ago)Environmental HistoryLives in a house (built 2003) w/ central air/forced heat, w/o evidence of mold/water damageFlooring in Bedroom: hard flooringPets: noneDataI reviewed outside records available in the EMR08/29/23Broad Food ImmunocapsEgg White IgE 1.24Peanut IgE 0.32Wheat IgE 0.33Milk IgE 0.18Soybean IgE 0.12Sesame SeedIgE 0.33Almond IgE 0.11Undetectable: walnut, cashew, hazelnut, codfish, tuna, salmon, shrimp, scallop Reason For Referral Reason For Referral No Information History Of Present Illness Encounter Date Complaint History Of Prese nt Illness reaction, food Adverse Food [place] ctionMilk - She reports diarrhea with milk dairy products (not consistently). Her symptoms tend to occur after milk more than sour cream or yogurt. She tolerates cheese. No associated rash or swelling. No dyspnea. She does use lactaid with benefit.Wheat - She reports diarrhea wheat containing products. She reports itchy hands and feet, occasionally tongue pruritus, without hives or swelling. These symptoms do not occur with small volume ingestions, but can happen with larger volume ingestions. No dyspnea with any episodes. She does report sensation of palpitations or lightheadedness (she relates this to symptoms of a panic attack). However, use of gluten-free products has also sometimes resulted in symptoms. She worries about having food intolerances. She is not avoiding any foods at this time.She has no history of asthma. She has mild rhinitis, occasionally uses OAH PRN (not frequently).PMH: hypothyroidism, breast cancer (in remission) PSH: lumpectomyMedication Allergies:Erythromycin - Does not recall the details, perhaps rashNitrofurantoin - She had palpitations, dyspnea.Sulfa Abx - Does not recallTaxotere - She had a rash (papular). She does not recall the details of how this was treatedFHAsthma - noneRhinitis - mom, dad, childrenSHTobacco: Former smoker (2 ppd x 5 years; quit 35 years ago)Environmental HistoryLives in a house (built 2003) w/ central air/forced heat, w/o evidence of mold/water damageFlooring in Bedroom: hard flooringPets: noneDataI reviewed outside records available in the EMR08/29/23Broad Food ImmunocapsEgg White IgE 1.24Peanut IgE 0.32Wheat IgE 0.33Milk IgE 0.18Soybean IgE 0.12Sesame Seed IgE 0.33Almond IgE 0.11Undetectable: walnut, cashew, hazelnut, codfish, tuna, salmon, shrimp, scallop Functional Status Date Functional Assessmen t No Information Instructions Date Instruction Additional Infor mation No Information Assessments Type Assessment Date assessment Other adverse food reaction, ini tial encounter assessment Abnormal results of function rui dies of other systems assessment Lactose intolerance, unspecified Patient Care Teams Name Effective Dates (start - stop) Status Members No Information
--- OUTSIDE RECORDS SUMMARY | 2025-03-15 10:14 | XMS_ITS | Encounter Summary ---
Author Organization [facility] Address [address] [place] [address] Care Team Providers Care Stapling Machine Operator Name Role Phone Michael Aguilar MD Primary Care Provider Encounter Details Date Type Department Care Team (Late st Contact Info) Description 09/17/2008 Outpatient Historical [facility] Radiation Oncology [place] [address] [place] [address] Marylin Pearl MD NO ADDRESS ON FILE Deshaun Hickman MD [address] [place] [phone] Malignant Neoplasm of Central Portion of Female Breast (CMS/HCC) Social History Tobacco Use Types Packs/Day Years Used Date Smoking Tobacco: Never Assessed Comments Unknown Sex and Gender Information Value Date Recorded Sex Assigned at Not on file 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 Gender Identity Not on file Sexual Orientation Not on file documented as of this encounter Plan of Treatment Not on file documented as of this encounter Visit Diagnoses Diagnosis Malignant neoplasm of central portion of female breast (CMS/HCC) Malignant neoplasm of central portion of female breast documented in this encounter Care Teams Stapling Machine Operator Relationship Specialty Start Date End Date Michael Aguilar MD [facility] [facility] [place] [address] PCP - General Family Practice 08/31/23 documented as of this encounter
--- OUTSIDE RECORDS SUMMARY | 2025-03-15 10:14 | XMS_ITS | Clinical Summary ---
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 282 after treatmetn for BOOP 87 in January Flow of peripheral blood was normal. 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 - [...] months Assessment & Plan (07/16/2010 3:01 PM HAND DRILLER): ITP and breast cancer Mammogram in Apr [...] months Assessment & Plan (06/27/2009 11:13 AM HAND DRILLER): Mammogram 05/05/09 negative 1 yr out from [...] Encounters Date Type Department Care Team Description 03/12/2025 External Device Data STL ABSTRACTION Provider, Abstract 02/19/2025 External Device Data ST[facility] ABSTRACTION Provider, [...] on file Legal Sex Female 5:39 AM HAND DRILLER Gender Identity Not on file Sexual Orientation Not on file Occupation Industry Job Start Date Job End Date Not on file Not on file Not on file Not on file Last Filed Vital Signs Vital Sign Reading Time Taken Comments Blood Pressure 130/70 06/03/2020 12:21 PM HAND DRILLER Pulse 65 06/03/2020 12:21 PM HAND DRILLER Temperature 36.7 C (98.1 F) 06/03/2020 12:21 PM HAND DRILLER Respiratory Rate 18 06/03/2020 12:21 PM HAND DRILLER Oxygen Saturation 99% 06/03/2020 12:21 PM HAND DRILLER Inhaled Oxygen Concentration - - Weight 62.1 kg (137 lb) 06/03/2020 12:21 PM HAND DRILLER Height 168.9 cm (5' 6.5) 06/03/2020 12:21 PM CS T Body Mass Index 21.78 06/03/2020 12:21 PM HAND DRILLER Plan of Treatment Health Maintenance Due Date [...] 1 - Negative DICTATION LOCATION: [facility] 12/04/2024 11:41 AM CDT BILATERAL SCREENING DIGITAL [...] found in the Imaging Section of the [facility] EMR, including absolute bone mineral density [...] years thereafter DICTATION LOCATION: Location 1 - [facility] 10/12/2023 4:24 PM CDT EXAMINATION: BONE DENSITY [...] found in the Imaging Section of the [facility] EMR, including absolute bone mineral density [...] every 2 years thereafter DICTATION LOCATION: Location [address] [place] [address] [facility] Carolyn Aguilar MD DIAGNOSTIC IMAGING ORDERABLES Fi nal Result from Last 3 Months or Most Recently Relevant to Health Maintenance Insurance RX [employer] [employer] H[employer] MCR Care Teams Claims Representative Relationship Specialty Start Date End Date iMchael Aguilar MD [address] [facility] [place] [address] PCP - General Family Practice 08/31/23
--- OUTSIDE RECORDS SUMMARY | 2025-03-15 10:14 | XMS_ITS | Encounter Summary ---
Author Organization [facility] Address [address] [place] [address] Care Team Providers Care Clinical Scientist Name Role Phone Michael Aguilar MD Primary Care Provider [phone] Encounter Details Date Type Department Care Team (Late st Contact Info) Description 10/19/2008 Outpatient Historical [facility] Radiation Oncology [place] [address] [place] [address] Marylin Pearl MD NO ADDRESS ON FILE Deshaun Hickman MD [address] [place] [phone] Malignant Neoplasm of Central Portion of Female Breast (CMS/HCC) Social History Tobacco Use Types Packs/Day Years Used Date Smoking Tobacco: Never Assessed Comments Unknown Sex and Gender Information Value Date Recorded Sex Assigned at Not on file 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
--- OUTSIDE RECORDS SUMMARY | 2025-03-15 10:14 | XMS_ITS | Encounter Summary ---
Author Organization [facility] Address 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 (CMS/HCC) Social History Tobacco Use Types Packs/Day Years Used Date Smoking Tobacco: Never Assessed Comments Unknown Sex and Gender Information Value Date Recorded Sex Assigned at Not on file 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
--- OUTSIDE RECORDS SUMMARY | 2025-03-15 10:14 | XMS_ITS | Encounter Summary ---
Author Organization [employer] Address [address] [place] [address] Care Team Providers Care Technology Education Teacher Name Role Phone Michael Aguilar MD Primary Care Provider [phone] Encounter Details Date Type Department Care Team (Latest Contact Info) Description 01/08/2009 Outpatient Historical [facility] Dflt Department Joy Olmedo MD [address] [place] [address] [place] [address] Encounter for Antineoplastic Chemotherapy Social History Tobacco Use Types Packs/Day Years Used Date Smoking Tobacco: Never Assessed Comments Unknown Sex and Gender Information Value Date Recorded Sex Assigned at Not on file 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 [place] [address] PCP - General Family Practice 08/31/23 documented as of this encounter
--- OUTSIDE RECORDS SUMMARY | 2025-03-15 10:14 | XMS_ITS | Encounter Summary ---
Author Organization [facility] Address [address] [place] [address] Care Team Providers Care Design Project Manager Name Role Phone Michael Aguilar MD Primary Care Provider [phone] Encounter Details Date Type Department Care Team (Late st Contact Info) Description 08/09/2008 Outpatient Historical [facility] Radiation Oncology [place] [address] [place] [address] Marylin Pearl MD NO ADDRESS ON FILE Deshaun Hickman MD [address] [phone] Malignant Neoplasm of Central Portion of Female Breast (CMS/HCC) Social History Tobacco Use Types Packs/Day Years Used Date Smoking Tobacco: Never Assessed Comments Unknown Sex and Gender Information Value Date Recorded Sex Assigned at Not on file 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
--- OUTSIDE RECORDS SUMMARY | 2025-03-15 10:14 | XMS_ITS | Encounter Summary ---
Author Organization [facility] Address [address] [place] [address] Care Team Providers Care Mink Rancher Name Role Phone Michael Aguilar MD Primary Care Provider [phone] Encounter Details Date Type Department Care Team (Latest Contact Info) Description 06/12/[address] 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
--- OUTSIDE RECORDS SUMMARY | 2025-03-15 10:14 | XMS_ITS | Encounter Summary ---
Author Organization [facility] Address [address] [place] [address] Care Team Providers Care Hog Pusher Name Role Phone Michael Aguilar MD Primary Care Provider [phone] Encounter Details Date Type Department Care Team (Late st Contact Info) Description 11/20/2008 Outpatient Historical [facility] Radiation Oncology [place] [address] [place] [address] Marylin Pearl MD NO ADDRESS ON FILE Deshaun Hickman MD [address] [place] [id number] Malignant Neoplasm of Central Portion of Female Breast (CMS/HCC) Social History Tobacco Use Types Packs/Day Years Used Date Smoking Tobacco: Never Assessed Comments Unknown Sex and Gender Information Value Date Recorded Sex Assigned at Not on file 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 Gender Identity Not on file Sexual Orientation Not on file documented as of this encounter Plan of Treatment Not on file documented as of this encounter Visit Diagnoses Diagnosis Malignant neoplasm of central portion of female breast (CMS/HCC) Malignant neoplasm of central portion of female breast documented in this encounter Care Teams Hog Pusher Relationship Specialty Start Date End Date Michael Aguilar MD [facility] [facility] [place] [phone] PCP - General Family Practice 08/31/23 documented as of this encounter
[2025-03-15 11:16] LABS: Hematocrit 43.3 % (37.0-47.0); Hemoglobin 14.1 g/dL (12.0-15.0); Immature Granulocyte Percent A 0.3 % (0-0.5); Lymphocytes Absolute Auto 1.80 K/mm3 (0.9-3.2); Mean Corpuscular HGB Conc 32.6 g/dl (32-36); Mean Corpuscular Hemoglobin 29.9 pg (26-34); Mean Corpuscular Volume 91.9 fl (80-100); Nucleated Red Blood Cells Absolute Auto 0.000 K/mm3 (0.0-0.012); Nucleated Red Blood Cells Perc 0.0 % (0.0-0.2); Platelet Count Result 145 k/mm3 (150-375); Red Blood Count 4.71 M/mm3 (4.2-5.4); White Blood Count 6.8 K/mm3 (4.5-10.0)
[2025-03-15 11:30] LABS: INR 1.0; Prothrombin Time 13.2 Seconds (11.1-14.7)
[2025-03-15 11:31] LABS: Albumin Level 4.5 g/dL (3.5-5.1); Estimated Glomerular Filt Rate > 60; Glucose 100 mg/dL (65-110); Partial Thromboplastin Time 28.1 Seconds (22.3-36.8)
[2025-03-15 11:55] LABS: Hemoglobin A1C 5.6 % (<5.7)
[2025-03-15 12:40] LABS: MRSA (PCR) NOT DETECTED (NOT DETECTE)
== END 2025-03-15 10:00 | disposition home or self-care (01) ==
LOC: ANHSURGERY 10:01
PROVIDERS: Anesthesiology; PCP Family Medicine; Visit Provider Orthopaedic Surgery
DX: Z01.812 Encounter for preprocedural laboratory examination (principal); M16.11 Unilateral primary osteoarthritis, right hip; D69.6 Thrombocytopenia, unspecified
CPT/HCPCS: 36415; 80307; 82040; 82565; 82947; 83036; 85025; 85610; 85730; 87641

== ENCOUNTER 2025-04-02 00:54 | Day surgery (SDC) | payer MEDICARE, SELFPAY ==
--- OUTSIDE RECORDS SUMMARY | 2023-09-14 09:00 | XMS_ITS | Continuity of Care Document ---
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 [address], [place], [address], [place]. tel:[phone] Referring Provider: Michael Leon, [address] [place] [address] [address], [place], [address]. tel:[phone] [facility], [address] [place] [address], [id number], [place] tel:[phone] [facility] No Information 4 [facility] Prov. . Referring Provider: Ozzie Hernandez, [address], [place], [address]. tel:[phone] Family History Family Member Type Diagnosis Age At Onset Mother Problem Rhinitis Problem No family history of Asthma Father Problem Rhinitis Problem Family history of Rhinitis Payers Payer name Insurance type Covered republican ID Matilde peña(s) [facility] [id number] Social History Type Description Quantity Date Captured [...] was treatedFHAsthma - noneRhinitis - mom, dad, childrenUpper Allegheny Health Systemo: Former smoker (2 ppd x 5 years; [...] Prese nt Illness reaction, food Adverse Food [place] ctionMilk - She reports diarrhea with milk [...]
[2025-03-15 10:12] VITALS: BP 129/85; PULSE 76; RESP 14; TEMP 36.6; O2SAT 100; BMI 23.7
--- NOTE | 2025-03-15 10:30 | PC.NURSE ---
Report to the Outpatient Waiting Room, entrance under the green pavilion located off [facility], at time __0830am on date _04/02/25 . Planned Procedure Time: ___1030am .? Time changes happen often and if your time is changed the preop area will call you the afternoon before. - You and your visitor will be asked to self-screen and do not enter if you have any COVID symptoms. Please call surgeon if you need to reschedule. - A mask is optional within the hospital at this time. Patients may have clear liquids (water, carbonated beverages, clear teas, apple juice) until 3 hours prior to surgery with a maximum of 20 ounces. - No food from midnight until time of surgery and no smoking, or chewing tobacco (or any form of nicotine). No chewing gum, candy or mints. (07:30am) Take only the following medications with a SIP of water on the morning of surgery: __Levothyroxine DO NOT STOP ANY OF YOUR OTHER PRESCRIPTION MEDICATIONS PRIOR TO SURGERY EXCEPT THE FOLLOWING Hold all vitamins and supplements for 3 days per anesthesiologist. Date of last dose is 03/29/25 Medications to discontinue per physician ____NO NSAIDS, ASPIRIN for [address] Nieto Date of last dose 03/24/25 Please no make-up, nail malagasy, hairspray, perfume, deodorant, or body powder the day of surgery.? No jewelry (including any body piercings) or valuables the day of surgery, leave them at home.? Please take a shower or bath the night before, or the morning of, surgery with an antibacterial soap. ( GOLD DIAL) ? Wear comfortable, loose fitting clothing.? Bring overnight bag, walker, Tennis shoes, cell phone/music theory professor - Jewelry must be removed prior to entering the operating room.? Rings and piercings that are not removed may be cut off. - The hospital will not accept responsibility for valuables.? - Please leave all valuables, including medications, at home the day of surgery. If you are going home after surgery, a licensed corrugated fastener driver must drive you home.? - NO public transportation without another adult if you receive anesthesia. - We recommend that an adult stay with you for 24 hours following discharge. - We also recommend that you do not drive, make important decision, drink alcoholic beverages, or take any drugs that were not prescribed by your health care provider for at least 24 hours after your discharge time. Follow any additional instructions given to you from your surgeon. Telephone instructions given to ____Patient and asked if any additional questions and then verbalized understanding. Patient advised to call surgeon office or pre surgery nurse liaison [phone] if any additional questions.
[2025-04-02] VITALS (15 sets, daily range): BP systolic 118–149; BP diastolic 64–84; PULSE 57–84; RESP 14–18; TEMP 35.7–36.3; O2SAT 96–100
--- NOTE | ~2025-04-02 | XR_ITS ---
Examination: XR hip RT min 2V Clinical History: POST-OP RIGHT ADELE Comparison: 03/18/2025 Technique: 2 views right hip Findings/impression: 1. Expected appearance and findings after right arthroplasty. 2. No periprosthetic fracture or other complication noted. Reviewed, dictated and finalized at location R.
--- OUTSIDE RECORDS SUMMARY | 2025-04-02 00:58 | XMS_ITS | Encounter Summary ---
Author Organization [facility] Address [address] [place] [address] Care Team Providers Care Maltster Name Role Phone Michael Aguilar MD Primary Care Provider [phone] Encounter Details Date Type Department Care Team (Late st Contact Info) Description 10/19/[address] 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
--- OUTSIDE RECORDS SUMMARY | 2025-04-02 00:58 | XMS_ITS | Encounter Summary ---
Author Organization [facility] Address [address] [place] [address] Care Team Providers Care Executive Sales Manager Name Role Phone Michael Aguilar MD Primary Care Provider [phone] Encounter Details Date Type Department Care Team (Late st Contact Info) Description 08/09/2008 Outpatient Historical [facility] Radiation Oncology [place] [address] [place] [address] Marylin Pearl MD NO ADDRESS ON FILE Deshaun Hickman MD [address] [place] [phone] Malignant Neoplasm of Central Portion of Female Breast (CMS/HCC) Social History Tobacco Use Types Packs/Day Years Used Date Smoking Tobacco: Never Assessed Comments Unknown Sex and Gender Information Value Date Recorded Sex Assigned at Not on file 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 Female 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
--- OUTSIDE RECORDS SUMMARY | 2025-04-02 00:58 | XMS_ITS | Encounter Summary ---
Author Organization [facility] Address 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) Social History Tobacco Use Types Packs/Day Years Used Date Smoking Tobacco: Never Assessed Comments Unknown Sex and Gender Information Value Date Recorded Sex Assigned at Not on file 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
--- OUTSIDE RECORDS SUMMARY | 2025-04-02 00:58 | XMS_ITS | Encounter Summary ---
Author Organization [facility] Address 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) Social History Tobacco Use Types Packs/Day Years Used Date Smoking Tobacco: Never Assessed Comments Unknown Sex and Gender Information Value Date Recorded Sex Assigned at Not on file 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
--- OUTSIDE RECORDS SUMMARY | 2025-04-02 00:58 | XMS_ITS | Clinical Summary ---
Author Organization [facility] [facility] Address [address] [place] [address] Care Team Providers Care Head Soft Sugar Operator Name Role Phone Michael Aguilar MD Primary Care Provider [phone] Allergies Active Allergy Reactions Criticality Noted Date [...] different from the original. Primary Care: Deshaun iHckman MD Referring Provider: Deshaun Hickman MD [address] [place] [address] Other: Dr Anneliese Phillips Problem Noted Date Diagnosed Date Asymptomatic postmenopausal status 07/01/2014 Thrombocytopenia - ITP 01/15/2009 Overview (01/15/2009): 153 prior to chemo. 282 after treatmetn for BOOP 87 in January Flow of peripheral blood was normal. 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 - [...] months Assessment & Plan (07/16/2010 3:01 PM DELIVERY TRUCK DRIVER HEAVY): ITP and breast cancer Mammogram in Apr [...] months Assessment & Plan (06/27/2009 11:13 AM DELIVERY TRUCK DRIVER HEAVY): Mammogram 05/05/09 negative 1 yr out from [...] Encounters Date Type Department Care Team Description 03/26/2025 External Device Data STL ABSTRACTION Provider, Abstract 03/12/2025 External Device Data [facility] ABSTRACTION Provider, [...] on file Legal Sex Female 5:39 AM DELIVERY TRUCK DRIVER HEAVY Gender Identity Not on file Sexual Orientation Not on file Occupation Industry Job Start Date Job End Date Not on file Not on file Not on file Not on file Last Filed Vital Signs Vital Sign Reading Time Taken Comments Blood Pressure 130/70 06/03/2020 12:21 PM DELIVERY TRUCK DRIVER HEAVY Pulse 65 06/03/2020 12:21 PM DELIVERY TRUCK DRIVER HEAVY Temperature 36.7 C (98.1 F) 06/03/2020 12:21 PM DELIVERY TRUCK DRIVER HEAVY Respiratory Rate 18 06/03/2020 12:21 PM DELIVERY TRUCK DRIVER HEAVY Oxygen Saturation 99% 06/03/2020 12:21 PM DELIVERY TRUCK DRIVER HEAVY Inhaled Oxygen Concentration - - Weight 62.1 kg (137 lb) 06/03/2020 12:21 PM DELIVERY TRUCK DRIVER HEAVY Height 168.9 cm (5' 6.5) 06/03/2020 12:21 PM CS T Body Mass Index 21.78 06/03/2020 12:21 PM DELIVERY TRUCK DRIVER HEAVY Plan of Treatment Health Maintenance Due Date [...] 1 - Negative DICTATION LOCATION: Rebeca Saunders [facility] 12/04/2024 11:41 AM CDT BILATERAL SCREENING [...] found in the Imaging Section of the [facility] EMR, including absolute bone mineral density [...] years thereafter DICTATION LOCATION: Location 1 - [facility] 10/12/2023 4:24 PM CDT EXAMINATION: BONE [...] found in the Imaging Section of the [facility] EMR, including absolute bone mineral density [...] every 2 years thereafter DICTATION LOCATION: Location [address] [place] [address] [facility] Carolyn Aguilar MD DIAGNOSTIC IMAGING ORDERABLES Fi nal Result from Last 3 Months or Most Recently Relevant to Health Maintenance Insurance RX [facility] [employer] HMO MCR Care Teams Head Soft Sugar Operator Relationship Specialty Start Date End Date Michael Aguilar MD [address] [facility] [place] [address] PCP - General Family Practice 08/31/23
--- OUTSIDE RECORDS SUMMARY | 2025-04-02 00:58 | XMS_ITS | Encounter Summary ---
Author Organization [facility] Address 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) Social History Tobacco Use Types Packs/Day Years Used Date Smoking Tobacco: Never Assessed Comments Unknown Sex and Gender Information Value Date Recorded Sex Assigned at Not on file Legal Sex Female 5:39 AM VP 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
--- OUTSIDE RECORDS SUMMARY | 2025-04-02 00:58 | XMS_ITS | Encounter Summary ---
Author Organization [facility] Address 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) Social History Tobacco Use Types Packs/Day Years Used Date Smoking Tobacco: Never Assessed Comments Unknown Sex and Gender Information Value Date Recorded Sex Assigned at Not on file 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
--- OUTSIDE RECORDS SUMMARY | 2025-04-02 00:58 | XMS_ITS | Encounter Summary ---
Author Organization [facility] Address [address] [place] [address] Care Team Providers Care Harvesting Supervisor Name Role Phone Michael Aguilar MD Primary Care Provider [phone] Encounter Details Date Type Department Care Team (Latest Contact Info) Description 01/08/2009 Outpatient Historical [facility] Dflt Department Joy Olmedo MD [address] [place] [address] [place] [address] Encounter for Antineoplastic Chemotherapy Social History Tobacco Use Types Packs/Day Years Used Date Smoking Tobacco: Never Assessed Comments Unknown Sex and Gender Information Value Date Recorded Sex Assigned at Not on file 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
--- NOTE | 2025-04-02 09:04 | WPDHPUPDATE1 ---
History and Physical Update Update Date/Time: 04/02/25 09:04 History and Physical has been reviewed, including an updated exam of the patient. There are NO changes in the patient's condition. Risks, benefits, and alternatives have been discussed and questions answered. Patient agrees to proceed with procedure.
--- NOTE | 2025-04-02 09:21 | WPDANESEPPF ---
Anes - Initial Pre Proc Eval Procedure: Operation Date: 04/02/25 10:30 Proposed Procedures p Right Total Hip Arthroplasty - Parveen Nieto MD Date/Time: 04/02/25 09:21 Surgeon: Parveen Nieto MD Pre Op Diagnosis: primary oa right hip Patient Data Age: 69 Gender: F Height: 1.68 m Weight: 66.6 kg Last Vital Signs Temp 97.9 F 03/15/25 10:12 Pulse 76 03/15/25 10:12 Resp 14 03/15/25 10:12 BP 129/85 03/15/25 10:12 Pulse Ox 100 03/15/25 10:12 O2 Del Method Room Air 03/15/25 10:12 Allergies Allergy/AdvReac Type Severity Reaction Status Date / Time erythromycin base Allergy Mild Other Verified 04/01/25 07:59 docetaxel Allergy Unknown Skin Verified 03/20/25 15:26 Reaction nitrofurantoin Allergy Unknown chills and Verified 03/20/25 15:26 aches sulfamethizole Allergy Unknown fever, Verified 03/20/25 15:26 headache Home Medications ?Medication ?Instructions ?Recorded ?Confirmed ?Type ascorbic acid (vitamin C) 1,000 mg 1 g PO DAILY 08/24/23 03/20/25 History capsule potassium citrate 99 mg capsule 99 mg PO PRN muscle cramps 08/24/23 03/20/25 History calcium 500 mg-vitamin D3 100 1 tablet PO DAILY 09/13/24 03/20/25 History unit-vitamin K 40 mcg chewable tablet lorazepam 0.5 mg tablet 0.5 mg PO DAILY PRN sleep 09/13/24 03/20/25 History magnesium 250 mg tablet 250 mg PO PRN muscle cramps 09/13/24 03/20/25 History multivitamin 1 tablet PO DAILY 09/13/24 03/20/25 History levothyroxine 50 mcg tablet 50 mcg PO DAILY #90 tabs 11/07/24 03/20/25 Rx cyclobenzaprine 5 mg tablet See Rx Instructions .Route 12/26/24 03/20/25 Rx .COMPLEX #30 tabs naproxen 500 mg tablet (Naprosyn) 500 mg PO QAM PRN pain 03/15/25 03/20/25 History aspirin 81 mg tablet,delayed 81 mg PO BID 14 days #28 tabs 04/02/25 Rx release oxycodone-acetaminophen 5 mg-325 1 - 2 tablet PO Q4-6H PRN pain 7 04/02/25 Rx mg tablet days #30 tabs Patient hx anesthesia problems: none Family hx anesthesia problems: none Results Review: All pre-operative results and documents have been reviewed as part of the pre-operative evaluation. [facility] Past Medical History Medical History Right knee pain Right hip pain Family History Family History Father Hypertension, Onset Age: 63 Cerebrovascular accident, Onset Age: 63 Family history of malignant neoplasm of esophagus Mother Cerebrovascular accident, Onset Age: 76 Other Family history of malignant neoplasm Social History Social History Smoking packs per day: 1.5 Smoking cigarettes per day: 30.0 Years smoked: 10 Smoking pack-years: 15.00 Smoking status: Former smoker Tobacco type: cigarettes Second hand tobacco smoke exposure: No Smoking end date: 07/11/86 Alcohol intake: current Alcohol use details: few per year Substance use: never Substance use type: does not use Do You Feel Safe in your Home?: Yes Lack of Transportation: No Lack of Food: Never True Current Housing: I Have Housing Concerned About Future Housing: No Difficulty Paying Gas/Electric Bills: No Difficulty Paying for Meds: No Currently Unemployed: No Education: Bachelor's Degree Difficulty w/ Childcare or Family Care: No Living arrangements: with family Additional living arrangements comments: Gender identity (if verbalized by the patient): Female Spiritual care concerns: No Agree to blood products: Yes Anes - Eval Final PreProcedure Day of Procedure 04/02/25 09:21 Patient weight: normal Lungs: normal air movement Airway: Mallampati scale class II Neurological: alert and oriented Last oral intake: >/= 8 hours ASA classification: II Emergent: no Anesthetic plan: proceed Anesthesia type and monitoring: general ETT and standard monitoring Results Review: All pre-operative results and documents have been reviewed as part of the pre-operative evaluation. Hypothyroidism, anxiety. Informed Consent: The patient's anesthetic plan and its attendant risks and benefits were discussed with the patient/family/POA. Questions were solicited and answers provided to the satisfaction of the patient/family/POA.
[2025-04-02] MEDS: ACETAMINOPHEN 500 MG TABLET 1000 MG PO (09:30)
[2025-04-02] MEDS: LACTATED RINGERS 1,000 ML 30 ML IV CONT ×2 (09:30→12:04)
[2025-04-02] MEDS: TRANEXAMIC ACID 1,000MG/ISO100 1,000 MG/100 ML BAG 200 MG IVPB (09:30)
[2025-04-02] MEDS: ceFAZolin 2 GM in SODIUM CHLORIDE 0.9% IV 50 ML 100 ML IVPB ×2 (09:56→17:37)
[2025-04-02] MEDS: SODIUM CHLORIDE 0.9% IV 37.7 ML, MORPHINE SULFATE INJ (*CRX) 2 MG, ROPivacaine HCL 1% 2... INFILTRATE (10:41)
[2025-04-02] MEDS: TRANEXAMIC ACID 1,000 MG/10 ML AMPUL 1000 MG IV PUSH (11:22)
--- NOTE | 2025-04-02 12:04 | W.PM.PROC2 ---
Procedure Note - Detailed Date of Procedure 04/02/25 Pre-op Diagnosis Right knee degenerative arthritis. Post-op Diagnosis Same Procedure Performed Right Total Hip Arthroplasty Surgeon Parveen Nieto MD Foreign Languages Department Chair Priscilla Kiran PA-C Anesthesia General Findings Minimal femoral anteversion. Description of Procedure The patient was given preoperative antibiotics. A general anesthetic was administered. The patient was carefully placed in the lateral decubitus position on the PEG board. The shoulders and hips were carefully positioned for component and leg length positioning reference. The hip was prepped and draped in the usual sterile fashion. A longitudinal incision was created over the posterior aspect of the greater trochanter. Careful dissection was brought down through the deep fascia with electrocautery. A minimally invasive optimized posterior approach to the hip was performed. The short external rotators and capsule were taken down in an L-shaped capsulotomy. The tissue was tagged for later repair using number 2 high strength suture. The femoral neck was measured and taken in situ. The femoral head was removed. The acetabulum was carefully exposed. The inferior capsule was released. The labrum was resected. The acetabulum was sequentially reamed to the intended cup size. The cup was impacted into position with excellent press-fit. Typical anatomic landmarks, including the bony contact points as well as the inferior transverse acetabular ligament were used to confirm cup positioning with preoperative templating. Attention was turned to the femur, which was carefully exposed. The hip was reamed and then broached sequentially. Excellent press-fit was obtained with the broach. The hip was trialed. Measurements were utilized, including the lesser trochanter as well as the center of the femoral head and the tip of the trochanter, and excellent assessment of the offset and leg lengths were confirmed. The real component was impacted into position. Trialing confirmed appropriate leg length and offset with soft tissue balancing as well apparent feel of the leg, both at the knee and the heel. Soft tissues were assessed using the the iliotibial band. Reduction of the posterior capsule and external rotators were also used as a secondary assessment. The hip was copiously irrigated with pulsatile lavage periodically throughout the procedure. The real components were then assembled and reduced. The hip was stable throughout typical maneuvers, including extension, external rotation to 70 degrees, the position of sleep as well as flexion to 90 degrees with internal rotation past 35 degrees. The shake test confirmed stability without impingement. Osteophytes were removed as necessary. The short external rotators and capsule were repaired back to the posterior trochanter through drill holes. The deep fascia was repaired with running number 2 barbed suture, followed by 2-0 Stratafix suture and 3-0 Stratafix suture in the dermis. Steri-Strips were placed on the skin, followed by a sterile occlusive dressing. There were no complications. Meticulous hemostasis was maintained with the AquaMantys device. The patient was brought to the recovery room in stable condition. There were no complications. Physician assistant to the ceo, Priscilla Kiran PA-C, required for surgery; including patient positioning, draping, tissue retraction, maintaining instrument position, hip dislocation/ relocation, wound closure, and dressing placement. Implants The Isabella Insignia hip stem, high offset size 4 , was utilized with excellent press-fit. The 52 mm Trident II acetabular component was impacted with excellent press-fit stability. 10 degree elevated polyethylene liner the +0, 36 mm Biolox ceramic femoral head was utilized. Estimated Blood Loss 200 Drains No Packing No Pathology None sent Complications No immediate complications Condition Stable Disposition PACU [facility] Billing Surgery - Charge Forward: Surgery Billing
--- NOTE | 2025-04-02 13:39 | SUR.PHASEI ---
1315: Patient meets PACU discharge criteria, unit bed unavailable at this time. Patient placed in extended recovery status.
--- NOTE | 2025-04-02 14:00 | ADMGEN ---
This patient, Vicenta Rouse, was admitted to [facility] Surg Room 302-01. Patient/family oriented to hospital policies and general routines including ID bracelet, bed and alarms, visiting hours, pain management, procedures, bathroom and other care routines, personal items, smoking policy, room service/diet, and visiting hours. Information on how to activate the Rapid Response Team has been discussed. Patient/Family are encouraged to report perceived risks to care and to ask questions if they do not understand what they are told or what they should do.
[2025-04-02] MEDS: SODIUM CHLORIDE 0.9% IV 1,000 ML 125 ML IV CONT (14:31)
[2025-04-02] MEDS: ASPIRIN 81 MG ENTERIC TABLET PO ×2 (14:34→20:08)
[2025-04-02] MEDS: ACETAMINOPHEN 325 MG TABLET 650 MG PO ×2 (14:34→17:36)
[2025-04-02] MEDS: FAMOTIDINE 20 MG TABLET PO ×2 (14:34→20:08)
[2025-04-02] MEDS: SENNA/DOCUSATE SODIUM TABLET 2 TAB PO ×2 (14:34→20:07)
[2025-04-02] MEDS: HYDROmorphone HCL INJ (*CRX) 1 MG/ML SYR 0.5 MG IV PUSH ×2 (14:35→17:36)
[2025-04-02] MEDS: ONDANSETRON INJ 4 MG/2 ML VIAL IV PUSH (17:33)
[2025-04-02] MEDS: oxyCODONE/ACETAMINOPHEN (*CRX) 10-325 MG TABLET 1 TAB PO (20:07)
[2025-04-03] MEDS: SODIUM CHLORIDE 0.9% IV 1,000 ML 125 ML IV CONT ×2 (00:19→05:53)
[2025-04-03] MEDS: ACETAMINOPHEN 325 MG TABLET 650 MG PO ×2 (00:19→05:51)
[2025-04-03] MEDS: ceFAZolin 2 GM in SODIUM CHLORIDE 0.9% IV 50 ML 100 ML IVPB ×2 (02:48→09:12)
[2025-04-03] MEDS: oxyCODONE/ACETAMINOPHEN (*CRX) 10-325 MG TABLET 1 TAB PO (02:49)
[2025-04-03 03:20] VITALS: BP 123/66; PULSE 69; RESP 16; TEMP 36.6; O2SAT 99
[2025-04-03 05:46] LABS: Hematocrit 33.8 % (37.0-47.0); Hemoglobin 11.2 g/dL (12.0-15.0); Immature Granulocyte Percent A 0.4 % (0-0.5); Lymphocytes Absolute Auto 1.15 K/mm3 (0.9-3.2); Mean Corpuscular HGB Conc 33.1 g/dl (32-36); Mean Corpuscular Hemoglobin 30.4 pg (26-34); Mean Corpuscular Volume 91.8 fl (80-100); Nucleated Red Blood Cells Absolute Auto 0.000 K/mm3 (0.0-0.012); Nucleated Red Blood Cells Perc 0.0 % (0.0-0.2); Platelet Count Result 146 k/mm3 (150-375); Red Blood Count 3.68 M/mm3 (4.2-5.4); White Blood Count 11.8 K/mm3 (4.5-10.0)
[2025-04-03] MEDS: LEVOTHYROXINE SODIUM 50 MCG TABLET PO (05:51)
[2025-04-03 06:02] LABS: Anion Gap 6 mmol/L (4-12); Blood Urea Nitrogen 11 mg/dL (7-17); Calcium 8.5 mg/dL (8.4-10.2); Carbon Dioxide 26 mmol/L (22-30); Chloride 105 mmol/L (98-107); Estimated CRCL calculation 66 ml/min; Estimated Glomerular Filt Rate > 60; Glucose 108 mg/dL (65-110); Potassium 3.8 mmol/L (3.4-5.0); Sodium 137 mmol/L (137-145)
[2025-04-03 08:00] VITALS: BP 143/80; PULSE 67; RESP 18; TEMP 36.1; O2SAT 100
[2025-04-03] MEDS: oxyCODONE/ACETAMINOPHEN (*CRX) 5-325 MG TABLET 1 TABLET PO (09:12)
[2025-04-03] MEDS: FAMOTIDINE 20 MG TABLET PO (09:13)
[2025-04-03] MEDS: SENNA/DOCUSATE SODIUM TABLET 2 TAB PO (09:13)
[2025-04-03] MEDS: ASPIRIN 81 MG ENTERIC TABLET PO (09:13)
== END 2025-04-03 10:35 | disposition home or self-care (01) ==
LOC: ANHSURGERY 08:25 → ANH3MEDSUR 14:01
PROVIDERS: Physician Assistant Surgical; PCP Family Medicine; Visit Provider Orthopaedic Surgery
PROC: (CPT 27130; principal; 2025-04-02 10:30)
DX: M16.11 Unilateral primary osteoarthritis, right hip (principal); Z87.891 Personal history of nicotine dependence
CPT/HCPCS: 27130; 36415; 73502; 80048; 85025; 86850; 86900; 86901; 97110; 97116; 97161; 97166; 97530; 97535; J0690; A9270; C1776; J0166; J1100; J1171; J1885; J2003; J2250; J2270; J2405; J2704; J2795; J3010; J7030; J7120